=== PATIENT | female | born 1960 | race Caucasian/White ===

== ENCOUNTER → 2019-04-06 14:31 | Outpatient (BNVA) | payer OTHER, SELFPAY | PROVIDERS: Family Provider Family Medicine; PCP Family Medicine; Visit Provider Family Medicine | DX: E78.5 Hyperlipidemia, unspecified (principal); E11.9 Type 2 diabetes mellitus without complications | CPT/HCPCS: 36415; 80053; 80061; 83036 ==

== ENCOUNTER 2019-06-08 16:32 | Outpatient (CLI) | payer OTHER, SELFPAY ==
--- NOTE | 2019-06-08 16:51 | XR_ITS ---
WS: [id number] XR cervical spine 3V* [id number] REASON FOR EXAM: chronic neck pain radiating down right arm FINDINGS: Narrowing of the disc spaces seen at C6-C7 There is degenerate changes C4-5. There is posterior spurring seen C6-C7. The odontoid process was normal. The joints of Luschka were normal. XR/XR cervical spine 3V* [id number] IMPRESSION: Degenerate disc changes C6-C7 Mild cervical spondylosis C6-C7
== END 2019-06-08 16:33 | disposition home or self-care (01) ==
LOC: RAD 16:35
PROVIDERS: Family Provider Family Medicine; PCP Family Medicine; Visit Provider Family Medicine
DX: M47.892 Other spondylosis, cervical region (principal); M54.2 Cervicalgia; G89.29 Other chronic pain
CPT/HCPCS: 72040

== ENCOUNTER 2019-07-08 09:43 | Outpatient (CLI) | payer SELFPAY ==
--- NOTE | 2019-07-08 09:50 | MR_ITS ---
WS: [id number] MRI CERVICAL SPINE NONCONTRAST TECHNIQUE: Sagittal T1, T2 and STIR imaging. Axial T2, gradient, and fiesta imaging. CLINICAL INFORMATION: NECK / SHOULDER PAIN COMPARISON: None. FINDINGS: Straightening of the normal cervical lordosis. Cord signal is normal. Moderate central canal stenosis C4-C6 worse at C6-7. C2-C3: Mild left and no significant right foraminal narrowing. Spinal canal is patent. C3-C4: Osteophytic ridging. Mild left and no significant right foraminal narrowing. Mild facet arthro lynda. Spinal canal is patent. C4-C5: Disc osteophyte complex with endplate ridging. Moderate central canal stenosis with slight con tact of the cervical cord. Moderate right greater than left bony foraminal narrowing. C5-C6: Disc osteophyte complex with endplate ridging. Small left pericentral disc osteophyte protrusi on with contact of the cervical cord. Moderate central canal stenosis. Moderate to severe left and mo derate right bony foraminal narrowing. Mild facet arthropathy. C6-C7: Disc osteophyte complex with moderate central canal stenosis and indentation on the cervical c ord. Severe right and moderate to severe left bony foraminal narrowing. Moderate facet arthropathy. C7-T1: Osteophytic ridging. Mild to moderate left and mild right bony foraminal narrowing. Spinal can al is patent. Visualized brain stem structures: Normal. Prevertebral soft tissues: Normal. MR/MR cervical spin wo con* [id number] IMPRESSION: 1. Straightening of the normal cervical lordosis. 2. Moderate central canal stenosis C4-C6 worse at C6-7 with disc osteophyte co mplexes with slight indentation on the cervical cord. 3. Moderate to severe bony foraminal narrowing worse at right C4-C5, left C5-C 6, and right C6-C7 worse at right C6-7. 4. Mild to moderate left C7-T1 bony foraminal narrowing.
== END 2019-07-08 09:44 | disposition home or self-care (01) ==
LOC: RADWPI 09:49
PROVIDERS: Family Provider Family Medicine; PCP Family Medicine; Visit Provider Family Medicine
DX: M54.2 Cervicalgia (principal); M25.519 Pain in unspecified shoulder; M48.02 Spinal stenosis, cervical region
CPT/HCPCS: 72141

== ENCOUNTER → 2019-08-07 08:45 | Outpatient (BNVA) | payer SELFPAY | PROVIDERS: Family Provider Family Medicine; PCP Family Medicine; Visit Provider Family Medicine | DX: I10 Essential (primary) hypertension (principal); E78.00 Pure hypercholesterolemia, unspecified | CPT/HCPCS: 80053; 80061; 83036 ==

== ENCOUNTER 2019-10-06 06:42 | Outpatient (CLI) | payer SELFPAY ==
--- NOTE | 2019-10-06 07:03 | NMCV_ITS ---
NM tesha perf SPECT r/s* [id number] Kathie Angel Age: 59 Gender: F : 1960 Exam Date: 10/06/2019 07:29 Ordering Phys: Lydia Laurent DO Technologist: KIMBERLY Villa Exam Location: [facility] Indications: PALPITATIONS STRESS TEST Please see separate stress test report in [facility] for full findings IMAGE PROTOCOL Rest/Stress 1 Exercise Day Radiopharmaceutical Dose (mCi) Administration Site Administered by Rest: Tc-99m 10.8 IV KIMBERLY Cano Sestamikar Stress:Tc-99m 32.7 IV KIMBERLY Cano Sestamikar Rest: 06-Oct-2019 60 Discovery 630 Stress: 06-Oct-2019 15 Discovery 630 Radiopharmaceutical was injected at 85 % maximum heart rate. Images obtained in supine and prone position. SPECT RESULTS Technical Quality: Excellent Raw Data Analysis: Normal Image Corrections: No attenuation or motion correction applied Summed Stress Score: 0 Summed Rest Score: 6 Summed Difference Score: 0 PERFUSION FINDINGS SPECT images demonstrate homogeneous tracer distribution throughout the myocardium. FUNCTIONAL RESULTS (calculated via Gated SPECT) Stress Image LV EF (%): 92 Stress EDV (mL):51 TID: 0.59 Stress ESV (mL):4 Rest Image LV EF (%): 91 FUNCTIONAL FINDINGS: Left ventricle function is hyperdynamic at 91% IMPRESSIONS Myocardial perfusion imaging is normal low probability for obstructive coronary artery disease. EKG segment will be documented separately. Tamie Acuna MD (Electronically Signed) Final Date: 06 October 2019 15:43 S
[2019-10-06 07:04] VITALS: BMI 26.3
[2019-10-06 09:19] VITALS: BP 177/83; PULSE 96
--- NOTE | 2019-10-06 09:30 | ECG_ITS ---
[facility] Test Date: 2019-10-06 Pat Name: Kathie Angel Department: Room: Gender: Female Investigative Writer: : 1960 Requested By: Lydia Laurent Order Number: [id number] Rogers MD: Iris Mancia M.D. Interpretive Statements NAME OF STUDY: EXERCISE SESTAMIBI STRESS TEST INDICATION: Palpitations, r/o CAD Baseline blood pressure of 134/86 mm Hg, heart rate of 59 beats per minute and oxygen saturation 94%. EKG showed normal sinus rhythm, normal axis with normal ST-Ts. The patient exercised for 7 minutes 15 seconds on a standard Mike protocol. Patient attained a maximum heart rate of 145 beats per minute(88 % of the maximum predicted heart rate) with a blood pressure at the peak exercise of 167/71 mm Hg and oxygen saturation of 97%. The EKG at the peak exercise revealed sinus tachycardia with significant baseline artifact. No markedly abnormal ST-T wave changes noted. Patient did not have any chest pain or any significant arrhythmis with the exercise. This study was terminated due to shortness of breath and fatigue. During the recovery phase, there were no new changes. Blood pressure at the end of the recovery phase was 177/83 mm Hg with a heart rate of 103 beats per minute and oxygen saturation 97%. CONCLUSION: 1. Normal EKG response to treadmill exercise 2. No exercise-induced chest pain or cardiac arrhythmia 3. Excellent exercise tolerance, attained a maximum of 10.2 METs. Maximum VO2 of 35.7 mL/kg/min. 4. Baseline normal blood pressure with normal response to exercise. 5. Perfusion scan will be documented separately. Electronically Signed On 10-07-2019 17:36:36 CDT by rIis Mancia M.D. [id number]
== END 2019-10-06 06:43 | disposition home or self-care (01) ==
LOC: CDL 06:43
PROVIDERS: PCP Family Medicine; Visit Provider Family Medicine
DX: R00.2 Palpitations (principal)
CPT/HCPCS: 78452; 93017; A9500

== ENCOUNTER → 2019-12-24 11:27 | Outpatient (BNVA) | payer SELFPAY | PROVIDERS: PCP Family Medicine; Visit Provider Family Medicine | DX: E11.65 Type 2 diabetes mellitus with hyperglycemia (principal) | CPT/HCPCS: 80053; 83036 ==

== ENCOUNTER → 2020-01-15 11:13 | Outpatient (BNVA) | payer OTHER, SELFPAY | PROVIDERS: PCP Family Medicine; Visit Provider Nurse Practitioner Family | DX: Z11.59 Encounter for screening for other viral diseases (principal); Z20.828 Contact with and (suspected) exposure to other viral communicable diseases; J06.9 Acute upper respiratory infection, unspecified | CPT/HCPCS: 87635 ==

== ENCOUNTER → 2020-04-06 13:55 | Outpatient (BNVA) | payer OTHER, SELFPAY | PROVIDERS: PCP Family Medicine; Visit Provider Family Medicine | DX: E11.9 Type 2 diabetes mellitus without complications (principal); E78.00 Pure hypercholesterolemia, unspecified; I10 Essential (primary) hypertension; Z79.4 Long term (current) use of insulin | CPT/HCPCS: 80053; 80061; 82043; 83036; 85025 ==

== ENCOUNTER → 2020-08-29 15:21 | Outpatient (BNVA) | payer SELFPAY | PROVIDERS: PCP Family Medicine; Visit Provider Family Medicine | DX: E11.9 Type 2 diabetes mellitus without complications (principal); Z79.4 Long term (current) use of insulin; R53.83 Other fatigue | CPT/HCPCS: 80053; 83036; 84443; 85025 ==

== ENCOUNTER → 2021-04-10 16:00 | Outpatient (BNVA) | payer SELFPAY | PROVIDERS: PCP Family Medicine; Visit Provider Family Medicine | DX: E11.9 Type 2 diabetes mellitus without complications (principal); Z79.4 Long term (current) use of insulin | CPT/HCPCS: 80053; 80061; 82043; 83036 ==

== ENCOUNTER → 2021-05-15 16:08 | Outpatient (BNVA) | payer SELFPAY | PROVIDERS: PCP Family Medicine; Visit Provider Family Medicine | DX: E78.00 Pure hypercholesterolemia, unspecified (principal) | CPT/HCPCS: 80053 ==

== ENCOUNTER 2021-06-16 16:46 | Emergency (ER) | payer SELFPAY ==
[2021-06-16 16:53] VITALS: BP 150/96; PULSE 78; RESP 18; TEMP 37; O2SAT 96; BMI 26.1
[2021-06-16 17:05] VITALS: BP 158/100; PULSE 78; RESP 16; O2SAT 98
--- NOTE | 2021-06-16 17:25 | XRR_ITS ---
PROCEDURE INFORMATION: Exam: XR Right Humerus Exam date and time: 06/16/2021 5:40 PM Age: 60 years old Clinical indication: Pain; Upper arm; Right; Additional info: Injury, fall today, severe pain in R arm near shoulder with loss of mobility TECHNIQUE: Imaging protocol: XR Right humerus. Views: 2 or more views. COMPARISON: CR (CHEST, ) 06/16/2021 5:35 PM FINDINGS: Bones/joints: The distal humerus and elbow are unremarkable. There is a comminuted nondisplaced fracture of the humeral neck and greater tubercle. Glenohumeral alignment is satisfactory. Soft tissues: Visible soft tissues are unremarkable. XR/[place] [id number] IMPRESSION: Comminuted nondisplaced proximal humeral fracture. No dislocation.
--- NOTE | 2021-06-16 17:25 | XRR_ITS ---
PROCEDURE INFORMATION: Exam: XR Right Shoulder Exam date and time: 06/16/2021 5:35 PM Age: 60 years old Clinical indication: Pain; Upper arm; Right; Additional info: Injury, fall today, severe pain in right arm near shoulder with loss of mobility TECHNIQUE: Imaging protocol: XR Right shoulder. Views: 2 or more views. COMPARISON: CR (CHEST, ) 06/16/2021 5:32 PM FINDINGS: Bones/joints: Comminuted nondisplaced fracture of humeral neck and greater tubercle. Glenohumeral alignment is satisfactory. The scapula is intact. The clavicle is intact. Soft tissues: Normal. XR/XR shoulder RT min 2V* [id number] IMPRESSION: Comminuted nondisplaced proximal humeral fracture. No dislocation.
--- NOTE | 2021-06-16 17:27 | XRR_ITS ---
PROCEDURE INFORMATION: Exam: XR Chest Exam date and time: 06/16/2021 5:32 PM Age: 60 years old Clinical indication: Pain; Chest pressure; Additional info: Injury to R humerus, PT in severe pain TECHNIQUE: Imaging protocol: XR of the chest. Views: 1 view. COMPARISON: CR Chest 2 views* [id number] 05/27/2018 9:18 AM FINDINGS: Lungs: Lungs are clear. Pleural spaces: There is no pleural effusion or pneumothorax. Heart/Mediastinum: Cardiomediastinal contours are unremarkable. Bones/joints: Comminuted nondisplaced right proximal humeral fracture. No apparent dislocation. XR/XR chest 1V portable [id number] IMPRESSION: 1. Comminuted nondisplaced right proximal humeral fracture. 2. Lungs are clear.
--- NOTE | 2021-06-16 17:32 | ED_ITS ---
HPI - Fall General: Chief Complaint: Fall Stated Complaint: Fell, Rt arm injury Time Seen by Provider: 06/16/21 16:48 History of Present Illness: 60-year-old female presents to the emergency department chief complaint of right arm injury due to a slip and fall she reports that this happened just prior to arrival which she is unable to move her arm without excruciating pain in the upper arm lower shoulder she reports no pre-existing history of right shoulder injury she reports no difficulty breathing or shortness of breath she reports the pain is excruciating primary with movement. 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 Associated symptoms-after fall: Denies abdominal pain, chest pain or headache(s) Review of Systems General: Reports: 10 or more systems reviewed and unremarkable except in HPI a nd below Const: Denies: fever(s), chills, fatigue or malaise Eyes: Denies: change in vision or blurry vision Card: Denies: chest pain or palpitations Resp: Denies: dyspnea or productive cough GI: Denies: abdominal pain, nausea or vomiting : Denies: flank pain Musc: Reports: extremity pain and extremity swelling Skin/Breast: Denies: rash or pruritus Neuro: Denies: headache(s), numbness in extremities or weakness in extremities Psych: Denies: anxiety or depression Robert/Lymph: Denies: easy bleeding All/Imm: Denies: urticaria, throat swelling or facial swelling PFSH ED PFSH: Medical History Depression Elevated LDL cholesterol level Essential (primary) hypertension Fibromyalgia History of 2019 novel coronavirus disease (COVID-19) Neuropathy Type 2 diabetes mellitus, with long-term current use of insulin Surgical History H/O: hysterectomy History of back surgery Family History Other Cancer Social History Smoking and tobacco status: former smoker Alcohol intake: never Adopted: Yes Lives independently: Yes Physical Exam Const: COMMON NORMALS: patient oriented x3 and healthy appearing; apparent distress (Appears to be in moderate distress due to pain.) HENMT: COMMON NORMALS: normocephalic and atraumatic HEAD & SCALP: normocephalic and atraumatic Eye: COMMON NORMALS: Equal, round and reactive pupils present and EOMs intact bilaterally PUPIL: Yes Equal, round and reactive pupils present Neck/C-Spine: COMMON NORMALS: full ROM, supple and no JVD Lymph: LYMPHATIC: no lymphadenopathy noted Chest: COMMONS NORMALS: normal inspection of the chest and normal palpation of entire chest wall Resp: COMMON NORMALS: normal respiratory effort, No retractions and clear to auscultation bilaterally EFFORT & INSPECTION: Yes able to speak in complete sentences and Yes symmetric chest movement AUSCULTATION: clear to auscultation bilaterally Cardio: COMMON NORMALS: no JVD, regular rate and regular rhythm RATE: regular rate RHYTHM: regular rhythm GI: COMMON NORMALS: Normal to inspection, nondistended, normoactive bowel sounds present, Soft to palpation and non-tender INSPECTION: Yes normal to inspection PALPATION: Yes Soft to palpation : COMMON NORMALS: Yes no CVA tenderness BLADDER/KIDNEY EXAM: Yes no CVA tenderness Back/Pelvis: COMMON NORMALS: no CVA tenderness Extremity: RIGHT UPPER EXTREMITY: Yes shoulder joint and Yes upper arm (Significant pain to palpation over the upper humerus lower shoulder obvious) OTHER: Neurovascularly intact distally concerns for deformity noted to the midshaft humerus no obvious crepitance or step-offs appreciated Neuro: COMMON NORMALS: patient oriented x3, CN's II-XII intact bilaterally, moves all extremities and no focal motor deficits Psych: COMMON NORMALS: mental status grossly normal, Normal thought process present, cooperative and normal affect THOUGHT PROCESS: Normal thought process present Skin: COMMON NORMALS: no rashes or lesions noted GENERAL SKIN EXAM: no rashes or lesions noted Course Vital Signs: Vital signs: Vital Signs Temperature 98.6 F 06/16/21 16:53 Pulse Rate 98 06/16/21 17:33 Respiratory Rate 16 06/16/21 17:05 Blood Pressure 158/92 06/16/21 17:33 Pulse Oximetry 100 06/16/21 17:33 MDM - Fall Medical Decision Making Due to the patient sitting condition I will establish family provider for pain control. X-ray imaging of the right shoulder right humerus will be obtained we will continue to follow. Discussed the patient's case with Dr. Calderón implementation project coordinator orthopedist there is in agreement put the patient in a shoulder immobilizer further follow-up in the office in his upcoming Saturday to start the patient hydrocodone for breakthrough pain control. Discharge Plan Discharge Patient Disposition: Home Clinical Impression: Fracture of head of humerus, Fall from standing Condition: Stable Prescriptions: New hydrocodone-acetaminophen 7.5-325 mg tablet 1 tab PO Q8H PRN (Reason: pain) Qty: 20 0RF No Action aspirin 81 mg tablet,delayed release (DR/EC) 162 mg PO ONCE 0RF glipizide 5 mg tablet extended release 24hr 5 mg PO DAILY Qty: 90 0RF hydrochlorothiazide 25 mg tablet 25 mg PO QAM Qty: 90 1RF lisinopril 5 mg tablet 5 mg PO ONCE Qty: 90 1RF venlafaxine [Effexor XR] 75 mg capsule,extended release 24hr 75 mg PO QAM Qty: 90 1RF metformin 500 mg tablet 1,000 mg PO BID Qty: 120 5RF Lantus Solostar U-100 Insulin 100 unit/mL (3 mL) insulin pen See Rx Instructions .ROUTE .COMPLEX Qty: 15 0RF Dose Instruction: INJECT 50 UNITS SUBCUTANEOUSLY EVERY DAY Rx Instructions: INJECT 50 UNITS SUBCUTANEOUSLY EVERY DAY Victoza 3-Palmer 0.6 mg/0.1 mL (18 mg/3 mL) pen injector See Rx Instructions .ROUTE .COMPLEX Qty: 9 0RF Dose Instruction: INJECT 1.8MG SUBCUTANEOUSLY EVERY 24 HOURS Rx Instructions: INJECT 1.8MG SUBCUTANEOUSLY EVERY 24 HOURS atorvastatin 40 mg tablet See Rx Instructions .ROUTE .COMPLEX 90 Days Qty: 90 0RF Dose Instruction: Take 1 tablet by mouth once daily Rx Instructions: Take 1 tablet by mouth once daily Discharge Orders: Discharge ED (Routine); Ordered 06/16/21 Ordered By: Aldair Sandoval Referrals: Geoffrey Calderón DO [Physician] - 4-7 days (Follow-up with Dr. Calderón on this upcoming Saturday please contact the office noted above on Saturday to further cement this appointment) Lydia Laurent DO [Primary Care Provider] - Discharge Activity: Limit activity as instructed Patient Instructions: Fractures - Humerus, Arm Fracture in Adults (ED), Opioid Safety Activity Restrictions/Additional Instructions: Please follow-up with the provided orthopedic doctor as noted above please use the shoulder immobilizer all the time until seen by him, take medications as prescribed. Please return the interim if any of your symptoms persist or worse. Coding Level of Care Code ED Public Health Policy Analyst for [employer] Fwd Exam Comprehensive
[2021-06-16 17:33] VITALS: BP 158/92; PULSE 98; O2SAT 100
[2021-06-16 18:15] VITALS: RESP 18
[2021-06-16] MEDS: ondansetron 2 mg/ML SDV 2 mL 4 MG IVP (18:15)
[2021-06-16] MEDS: sodium chloride 0.9% 1,000 ML 100 ML IV (18:15)
[2021-06-16] MEDS: fentaNYL 50 mcg/mL INJ 2mL IVP (18:15)
[2021-06-16 19:11] VITALS: BP 134/84; PULSE 92; RESP 16; O2SAT 94
--- NOTE | 2021-06-16 19:17 | PC.NURSE ---
Patient in bed, report given to Melvin KUMARI.
== END 2021-06-16 19:30 | disposition home or self-care (01) ==
PROVIDERS: Emergency Provider Emergency Medicine; PCP Family Medicine
DX: S42.294A Other nondisplaced fracture of upper end of right humerus, initial encounter for closed fracture (principal); Z79.84 Long term (current) use of oral hypoglycemic drugs; Z79.82 Long term (current) use of aspirin; Z79.4 Long term (current) use of insulin; I10 Essential (primary) hypertension; E11.40 Type 2 diabetes mellitus with diabetic neuropathy, unspecified; Z87.891 Personal history of nicotine dependence; W01.0XXA Fall on same level from slipping, tripping and stumbling without subsequent striking against object, initial encounter
CPT/HCPCS: 71045; 73030; 73060; 96361; 96374; 96375; 99284; J2405; J3010; J7030

== ENCOUNTER → 2021-07-10 16:04 | Outpatient (BNVA) | payer SELFPAY | PROVIDERS: PCP Family Medicine; Visit Provider Family Medicine | DX: E11.9 Type 2 diabetes mellitus without complications (principal); Z79.4 Long term (current) use of insulin; E78.00 Pure hypercholesterolemia, unspecified; E11.65 Type 2 diabetes mellitus with hyperglycemia | CPT/HCPCS: 80053; 83036 ==

== ENCOUNTER → 2021-07-13 13:18 | Outpatient (BNVA) | payer SELFPAY | PROVIDERS: PCP Family Medicine; Visit Provider Orthopaedic Surgery | DX: S42.291A Other displaced fracture of upper end of right humerus, initial encounter for closed fracture (principal); S42.301A Unspecified fracture of shaft of humerus, right arm, initial encounter for closed fracture | CPT/HCPCS: 73030 ==

== ENCOUNTER → 2022-01-11 09:37 | Outpatient (BNVA) | payer SELFPAY | PROVIDERS: PCP Family Medicine; Visit Provider Family Medicine | DX: E78.5 Hyperlipidemia, unspecified (principal); E11.9 Type 2 diabetes mellitus without complications; Z79.4 Long term (current) use of insulin | CPT/HCPCS: 80053; 80061; 82043; 83036; 85025 ==

== ENCOUNTER 2022-02-20 08:08 | Inpatient (IN) | payer SELFPAY ==
[2022-02-20] VITALS (10 sets, daily range): BP systolic 111–130; BP diastolic 61–83; PULSE 70–97; RESP 14–19; TEMP 36.4–36.9; O2SAT 94–99; BMI 25.8; BMI 25.2
--- NOTE | 2022-02-20 08:22 | XRR_ITS ---
PROCEDURE INFORMATION: Exam: XR Chest Exam date and time: 02/20/2022 9:42 AM Age: 61 years old Clinical indication: Pain; Angina pectoris; Additional info: Cp TECHNIQUE: Imaging protocol: Radiologic exam of the chest. Views: 1 view. COMPARISON: CR (CHEST, ) 06/16/2021 5:32 PM FINDINGS: Lungs: Unremarkable. No consolidation. Pleural spaces: Unremarkable. No pleural effusion. No pneumothorax. Heart/Mediastinum: Unremarkable. No cardiomegaly. Bones/joints: Unremarkable. XR/XR chest 1V portable [id number] IMPRESSION: No acute findings.
--- NOTE | 2022-02-20 08:23 | ECG_ITS ---
[facility] Test Date: 2022-02-20 Pat Name: Kathie Angel Department: Room: Gender: Female Informaticist: : 1960 Requested By: Meg Gutierrez Order Number: [id number] Rogers MD: Iris Mancia M.D. Measurements Intervals [place] Rate: 78 P: 50 WI: 173 QRS: -16 QRSD: 96 T: 44 QT: 378 QTc: 433 Interpretive Statements SINUS RHYTHM POSSIBLE LEFT ATRIAL ENLARGEMENT [-0.1mV P-WAVE IN V1/V2] LOW QRS VOLTAGE IN PRECORDIAL LEADS [QRS DEFLECTION < 1.0 mV IN CHEST LEADS] POSSIBLE ANTERIOR MYOCARDIAL INFARCTION , PROBABLY OLD [30 ms Q WAVE IN V3/V4, OR R < 0.2 mV IN V4] Compared to ECG 09/16/2017 13:33:14 Low QRS voltage now present Myocardial infarct finding now present Electronically Signed On 02-20-2022 18:08:23 LOGISTICS AND PLANNING MANAGER by Iris Mancia M.D. [id number]
--- NOTE | 2022-02-20 09:01 | W.ED.WEAKNES ---
Documented by User: LILLI See 02/20/22 12:03 HPI - Weakness General: Chief complaint: Weakness Stated complaint: chest pain Time Seen by Provider: 02/20/22 08:35 History of Present Illness: Patient is a 61-year-old female who comes to the ED with palpitations. Patient has a past medical history of type 2 diabetes, hypertension and dyslipidemia. Patient was former smoker and quit smoking a year ago. She has a 15 pack-year history of tobacco smoke. Symptoms started while she was up getting ready for work. She started feeling off and weak' so she sat down. When she sat down she started feeling palpitations in her chest and also developed achiness in her shoulders bilaterally, left shoulder blade and in her neck. The palpitations lasted for approximately 20 minutes. The heart palpitations have resolved upon arrival here in the ED but she still is having some achiness in her shoulders and neck. She took 162 mg of aspirin this morning. Denies any similar past episodes. Associated symptoms: Reports chest pain; Denies chills, dysuria, fever(s), headache(s), nausea or vomiting Review of Systems Const: Denies: fever(s), chills or fatigue Eyes: Denies: change in vision or eye discomfort ENMT: Denies: throat pain, odynophagia, nasal discharge or nasal congestion Card: Reports: chest pain and palpitations; Denies: edema, swelling of feet/ankles, dyspnea on exertion or orthopnea Resp: Denies: dyspnea, productive cough or non-productive cough GI: Denies: abdominal pain, nausea, vomiting, diarrhea, constipation or hematochezia : Denies: flank pain, dysuria or hematuria Musc: Denies: neck pain, back pain or extremity swelling Skin/Breast: Denies: rash or new lesions Neuro: Denies: headache(s), numbness in extremities or weakness in extremities PFS ED PFSH: Medical History Depression Elevated LDL cholesterol level Essential (primary) hypertension Fibromyalgia History of 2019 novel coronavirus disease (COVID-19) Neuropathy Type 2 diabetes mellitus, with long-term current use of insulin Surgical History H/O: hysterectomy History of back surgery Family History Other Cancer Social History Smoking and tobacco status: former smoker Alcohol intake: never Adopted: Yes Lives independently: Yes Physical Exam Const: COMMON NORMALS: no acute distress, patient oriented x3 and alert GENERAL APPEARANCE: cooperative HENMT: COMMON NORMALS: normocephalic HEAD & SCALP: normocephalic MOUTH: Normal oral and palatal mucosa present THROAT: posterior oropharynx normal and uvula midline Neck/C-Spine: COMMON NORMALS: supple GENERAL: Yes normal visual inspection Resp: COMMON NORMALS: normal respiratory effort, No retractions, No use of accessory muscles and clear to auscultation bilaterally AUSCULTATION: clear to auscultation bilaterally Cardio: COMMON NORMALS: regular rate, regular rhythm, S1 normal heart sound present, S2 normal heart sound present, No gallops present (Cardio), No clicks present (Cardio), No murmurs present (Cardio) and Peripheral pulses 2+ throughout RATE: regular rate RHYTHM: regular rhythm HEART SOUNDS: S1 normal heart sound present and S2 normal heart sound present PERIPHERAL PULSES: Peripheral pulses 2+ throughout GI: COMMON NORMALS: Normal to inspection, nondistended, normoactive bowel sounds present, Soft to palpation, non-tender and no masses PALPATION: Yes Soft to palpation : COMMON NORMALS: Yes no CVA tenderness BLADDER/KIDNEY EXAM: Yes no CVA tenderness Back/Pelvis: COMMON NORMALS: no CVA tenderness Extremity: COMMON NORMALS: normal to inspection Neuro: COMMON NORMALS: patient oriented x3 SENSORIUM/ORIENTATION: Yes alert GAIT: Yes Normal gait present Skin: GENERAL SKIN EXAM: dry skin Course Reevaluation(s): Reevaluation #1: Patient says her achiness in shoulders bilaterally and neck have improved. Right now she is just feeling tired, fatigued and weak. Denies any new chest pain or any new symptoms since here in the ED. Time: 10:00 Vital Signs: Vital signs: Vital Signs Temperature 97.6 F 02/20/22 08:14 Pulse Rate 71 02/20/22 11:16 Respiratory Rate 16 02/20/22 11:16 Blood Pressure 125/72 02/20/22 11:16 Pulse Oximetry 96 02/20/22 11:16 Oxygen Delivery Me thod 02/20/22 11:16 MDM - Weakness Medical Decision Making Patient is a 61-year-old female comes to the ED with chest pain like symptoms and palpitations. Past medical history of diabetes, hyperlipidemia and hypertension. She was getting ready for work and she felt off and then sat down and started feeling palpitations in her chest and achiness in her shoulders and neck. She has never had any symptoms like this before. Her symptoms have mostly resolved here in the ED. Vitals are stable. Exam of patient is benign. First troponin was 48 and then her 2-hour troponin was 92.75 giving her a delta of 44.75. Her EKGs did not show anything acute. I spoke with Dr. Esposito about patient case and he will be taking over patient care and getting her admitted. Lab Data I reviewed the patient's lab results. 02/20/22 09:13 02/20/22 09:13 Radiology Impressions Chest X-Ray 02/20/22 08:22 IMPRESSION: No acute findings. Laboratory Results WBC 7.3 10^3/uL (4.0-10.0) 02/20/22 09:13 RBC 4.16 10^6/uL (4.1-5.3) 02/20/22 09:13 Hgb 13.0 g/dL (11.5-15.3) 02/20/22 09:13 Hct 39.6 % (37.0-47.0) 02/20/22 09:13 MCV 95.2 fl (81-99) 02/20/22 09:13 MCH 31.3 pg (28.0-34.0) 02/20/22 09:13 MCHC 32.8 g/dL (30.0-36.0) 02/20/22 09:13 RDW 12.4 % (12.1-15.1) 02/20/22 09:13 Plt Count 242 10^3/cmm (130-400) 02/20/22 09:13 MPV 11.4 fL (7.4-10.4) H 02/20/22 09:13 Neut % (Auto) 72.2 % 02/20/22 09:13 Lymph % (Auto) 15.9 % 02/20/22 09:13 [place] % (Auto) 10.0 % 02/20/22 09:13 Eos % (Auto) 0.8 % 02/20/22 09:13 Baso % (Auto) 0.8 % 02/20/22 09:13 Neut # (Auto) 5.25 10^3/uL (1.8-7.7) 02/20/22 09:13 Lymph # (Auto) 1.2 10^3/uL (0.8-4.8) 02/20/22 09:13 [place] # (Auto) 0.7 10^3/uL (0.2-0.9) 02/20/22 09:13 Eos # (Auto) 0.1 10^3/uL (0.0-0.8) 02/20/22 09:13 Baso # (Auto) 0.1 10^3/uL (0.0-0.1) 02/20/22 09:13 Nucleated RBC % (auto) 0 % 02/20/22 09:13 Nucleated RBCs # 0.0 /100WBC 02/20/22 09:13 Sodium 138 mmol/L (136-145) 02/20/22 09:13 Potassium 3.7 mmol/L (3.5-5.1) 02/20/22 09:13 Chloride 99 mmol/L (98-107) 02/20/22 09:13 Carbon Dioxide 26 mmol/L (22-29) 02/20/22 09:13 Anion Gap 16.7 (5-19) 02/20/22 09:13 BUN 16 mg/dL (6-20) 02/20/22 09:13 Creatinine 0.6 mg/dL (0.5-0.9) 02/20/22 09:13 GFR Calculation 102.3 mL/min (90-130) 02/20/22 09:13 Glucose 162 mg/dL (65-115) H 02/20/22 09:13 Calculated Osmolality 291 mOsm/kg (285-295) 02/20/22 09:13 Calcium 9.6 mg/dL (8.5-10.5) 02/20/22 09:13 Total Bilirubin 0.5 mg/dL (0.15-1.2) 02/20/22 09:13 AST 33 U/L (0-32) H 02/20/22 09:13 ALT 37 U/L (0-33) H 02/20/22 09:13 Alkaline Phosphatase 65 U/L (35-105) 02/20/22 09:13 Troponin T Baseline 48 ng/L (0-10) H 02/20/22 09:13 Troponin T 120 Minute 92.75 ng/L (0-10) H 02/20/22 11:00 Delta Troponin T 44.75 ABS# (0-10) H* 02/20/22 11:00 Total Protein 6.6 g/dL (6.6-8.7) 02/20/22 09:13 Albumin 4.2 g/dL (3.5-5.2) 02/20/22 09:13 Globulin 2.4 g/dL (1.3-4.6) 02/20/22 09:13 EKG Data EKG 1: EKG interpretation date: 02/20/22 Interpretation: Sinus rhythm, 78 bpm, no ST segment elevation or depression seen. Discharge Plan Discharge Patient Disposition: Placed in Observation Clinical Impression: Non-ST elevation OK (NSTEMI) Condition: Stable Prescriptions: No Action metformin 500 mg tablet 1,000 mg PO BID Qty: 360 1RF hydrochlorothiazide 25 mg tablet 25 mg PO QAM Qty: 90 1RF venlafaxine [Effexor XR] 75 mg capsule,extended release 24hr 75 mg PO QAM Qty: 90 1RF aspirin 81 mg tablet,delayed release (DR/EC) 162 mg PO QAM multivitamin Tablet 1 tab PO QAM biotin 10,000 mcg Capsule 10,000 mcg PO QAM CoQ-10 100 mg Capsule 100 mg PO DAILY atorvastatin 40 mg tablet 40 mg PO QAM glipizide 5 mg tablet extended release 24hr 5 mg PO QAM terbinafine HCl 250 mg tablet 250 mg PO QAM lisinopril 5 mg tablet 5 mg PO QAM Lantus Solostar U-100 Insulin 100 unit/mL (3 mL) insulin pen 32 unit SUBCUT QAM Victoza 3-Palmer 0.6 mg/0.1 mL (18 mg/3 mL) pen injector 1.8 mg SUBCUT BEDTIME Referrals: Lydia Laurent DO [Primary Care Provider] - Coding Level of Care Code ED Pathology Laboratory Director for Chg Fwd Exam Comprehensive Documented by User: Juan Esposito MD 02/20/22 12:40 HPI - Weakness General: Chief complaint: Weakness Stated complaint: chest pain Time Seen by Provider: 02/20/22 08:35 PFSH ED PFSH: Medical History Depression Elevated LDL cholesterol level Essential (primary) hypertension Fibromyalgia History of 2019 novel coronavirus disease (COVID-19) Neuropathy Type 2 diabetes mellitus, with long-term current use of insulin Surgical History H/O: hysterectomy History of back surgery Family History Other Cancer Social History Smoking and tobacco status: former smoker Alcohol intake: never Adopted: Yes Lives independently: Yes Course Vital Signs: Vital signs: Vital Signs Temperature 97.6 F 02/20/22 08:14 Pulse Rate 71 02/20/22 11:16 Respiratory Rate 16 02/20/22 11:16 Blood Pressure 125/72 02/20/22 11:16 Pulse Oximetry 96 02/20/22 11:16 Oxygen Delivery Me thod 02/20/22 11:16 MDM - Weakness Medical Decision Making Patient is a 61-year-old female comes to the ED with chest pain like symptoms and palpitations. Past medical history of diabetes, hyperlipidemia and hypertension. She was getting ready for work and she felt off and then sat down and started feeling palpitations in her chest and achiness in her shoulders and neck. She has never had any symptoms like this before. Her symptoms have mostly resolved here in the ED. Vitals are stable. Exam of patient is benign. First troponin was 48 and then her 2-hour troponin was 92.75 giving her a delta of 44.75. Her EKGs did not show anything acute. I spoke with Dr. Esposito about patient case and he will be taking over patient care and getting her admitted. Received signout on the patient. She presents to the hospital after a 20-minute episode of chest pressure that radiated to her neck and her jaw this morning. Has a history of diabetes, high cholesterol, hypertension. Labs done while in the emergency department show an elevation in her troponin. At 2 hours the troponin continues to elevate. The patient is asymptomatic at this time. We will start heparin bolus and drip. I discussed the case with the hospitalist, and we will admit for further work-up and treatment of her NSTEMI Lab Data 02/20/22 09:13 02/20/22 09:13 Radiology Impressions Chest X-Ray 02/20/22 08:22 IMPRESSION: No acute findings. Laboratory Results WBC 7.3 10^3/uL (4.0-10.0) 02/20/22 09:13 RBC 4.16 10^6/uL (4.1-5.3) 02/20/22 09:13 Hgb 13.0 g/dL (11.5-15.3) 02/20/22 09:13 Hct 39.6 % (37.0-47.0) 02/20/22 09:13 MCV 95.2 fl (81-99) 02/20/22 09:13 MCH 31.3 pg (28.0-34.0) 02/20/22 09:13 MCHC 32.8 g/dL (30.0-36.0) 02/20/22 09:13 RDW 12.4 % (12.1-15.1) 02/20/22 09:13 Plt Count 242 10^3/cmm (130-400) 02/20/22 09:13 MPV 11.4 fL (7.4-10.4) H 02/20/22 09:13 Neut % (Auto) 72.2 % 02/20/22 09:13 Lymph % (Auto) 15.9 % 02/20/22 09:13 [place] % (Auto) 10.0 % 02/20/22 09:13 Eos % (Auto) 0.8 % 02/20/22 09:13 Baso % (Auto) 0.8 % 02/20/22 09:13 Neut # (Auto) 5.25 10^3/uL (1.8-7.7) 02/20/22 09:13 Lymph # (Auto) 1.2 10^3/uL (0.8-4.8) 02/20/22 09:13 [place] # (Auto) 0.7 10^3/uL (0.2-0.9) 02/20/22 09:13 Eos # (Auto) 0.1 10^3/uL (0.0-0.8) 02/20/22 09:13 Baso # (Auto) 0.1 10^3/uL (0.0-0.1) 02/20/22 09:13 Nucleated RBC % (auto) 0 % 02/20/22 09:13 Nucleated RBCs # 0.0 /100WBC 02/20/22 09:13 Sodium 138 mmol/L (136-145) 02/20/22 09:13 Potassium 3.7 mmol/L (3.5-5.1) 02/20/22 09:13 Chloride 99 mmol/L (98-107) 02/20/22 09:13 Carbon Dioxide 26 mmol/L (22-29) 02/20/22 09:13 Anion Gap 16.7 (5-19) 02/20/22 09:13 BUN 16 mg/dL (6-20) 02/20/22 09:13 Creatinine 0.6 mg/dL (0.5-0.9) 02/20/22 09:13 GFR Calculation 102.3 mL/min (90-130) 02/20/22 09:13 Glucose 162 mg/dL (65-115) H 02/20/22 09:13 Calculated Osmolality 291 mOsm/kg (285-295) 02/20/22 09:13 Calcium 9.6 mg/dL (8.5-10.5) 02/20/22 09:13 Total Bilirubin 0.5 mg/dL (0.15-1.2) 02/20/22 09:13 AST 33 U/L (0-32) H 02/20/22 09:13 ALT 37 U/L (0-33) H 02/20/22 09:13 Alkaline Phosphatase 65 U/L (35-105) 02/20/22 09:13 Troponin T Baseline 48 ng/L (0-10) H 02/20/22 09:13 Troponin T 120 Minute 92.75 ng/L (0-10) H 02/20/22 11:00 Delta Troponin T 44.75 ABS# (0-10) H* 02/20/22 11:00 Total Protein 6.6 g/dL (6.6-8.7) 02/20/22 09:13 Albumin 4.2 g/dL (3.5-5.2) 02/20/22 09:13 Globulin 2.4 g/dL (1.3-4.6) 02/20/22 09:13 EKG Data EKG 1: Interpretation: EKG done at 11:50 AM and interpreted at 11:51 AM shows sinus rhythm, ventricular rate of 68 bpm, no ST segment elevation, left axis deviation, T wave inversion in lead aVR and lead III Discharge Plan Discharge Patient Disposition: Placed in Observation Clinical Impression: Non-ST elevation OK (NSTEMI) Condition: Stable Prescriptions: No Action metformin 500 mg tablet 1,000 mg PO BID Qty: 360 1RF hydrochlorothiazide 25 mg tablet 25 mg PO QAM Qty: 90 1RF venlafaxine [Effexor XR] 75 mg capsule,extended release 24hr 75 mg PO QAM Qty: 90 1RF aspirin 81 mg tablet,delayed release (DR/EC) 162 mg PO QAM multivitamin Tablet 1 tab PO QAM biotin 10,000 mcg Capsule 10,000 mcg PO QAM CoQ-10 100 mg Capsule 100 mg PO DAILY atorvastatin 40 mg tablet 40 mg PO QAM glipizide 5 mg tablet extended release 24hr 5 mg PO QAM terbinafine HCl 250 mg tablet 250 mg PO QAM lisinopril 5 mg tablet 5 mg PO QAM Lantus Solostar U-100 Insulin 100 unit/mL (3 mL) insulin pen 32 unit SUBCUT QAM Victoza 3-Pal[place] 0.6 mg/0.1 mL (18 mg/3 mL) pen injector 1.8 mg SUBCUT BEDTIME Referrals: Lydia Laurent DO [Primary Care Provider] - Coding Level of Care Code ED Pathology Laboratory Director for Chg Fwd Exam Comprehensive
[2022-02-20] MEDS: aspirin 81 mg Chew Tablet 162 MG PO (09:22)
[2022-02-20 09:26] LABS: Basophils # 0.1 10^3/uL (0.0-0.1); Basophils % 0.8 %; Eosinophils # 0.1 10^3/uL (0.0-0.8); Eosinophils % 0.8 %; Hematocrit 39.6 % (37.0-47.0); Lymphocytes # 1.2 10^3/uL (0.8-4.8); Lymphocytes % 15.9 %; Mean Corpuscular HGB Conc 32.8 g/dL (30.0-36.0); Mean Corpuscular Hemoglobin 31.3 pg (28.0-34.0); Mean Corpuscular Volume 95.2 fl (81-99); Mean Platelet Volume 11.4 fL (7.4-10.4); Monocytes # 0.7 10^3/uL (0.2-0.9); Neutrophils # 5.25 10^3/uL (1.8-7.7); Neutrophils % 72.2 %; Nucleated Red Blood Cells % 0 %; Platelet Count 242 10^3/cmm (130-400); Red Blood Count 4.16 10^6/uL (4.1-5.3); Red Cell Distribution Width 12.4 % (12.1-15.1); White Blood Count 7.3 10^3/uL (4.0-10.0)
[2022-02-20 09:45] LABS: Troponin(5th) Baseline 48 ng/L (0-10)
[2022-02-20 09:46] LABS: Alanine Aminotransferase 37 U/L (0-33); Albumin Level 4.2 g/dL (3.5-5.2); Alkaline Phosphatase 65 U/L (35-105); Anion Gap 16.7 (5-19); Aspartate Amino Transferase 33 U/L (0-32); Blood Urea Nitrogen 16 mg/dL (6-20); Calcium 9.6 mg/dL (8.5-10.5); Carbon Dioxide 26 mmol/L (22-29); Chloride 99 mmol/L (98-107); Globulin 2.4 g/dL (1.3-4.6); Glomerular Filtration Rate 102.3 mL/min (90-130); Glucose 162 mg/dL (65-115); Osmolality Calculated 291 mOsm/kg (285-295); Potassium 3.7 mmol/L (3.5-5.1); Sodium 138 mmol/L (136-145); Total Bilirubin 0.5 mg/dL (0.15-1.2); Total Protein 6.6 g/dL (6.6-8.7)
--- NOTE | 2022-02-20 10:23 | ECG_ITS ---
[facility] Test Date: 2022-02-20 Pat Name: Kathie Angel Department: Room: Gender: Female Survey Superintendent: : 1960 Requested By: Doug Pires Order Number: [id number] Rogers MD: Iris Mancia M.D. Measurements Intervals [place] Rate: 68 P: 24 MO: 177 QRS: -30 QRSD: 101 T: 15 QT: 388 QTc: 414 Interpretive Statements SINUS RHYTHM BORDERLINE LEFT AXIS DEVIATION [QRS AXIS < -20] Compared to ECG 02/20/2022 08:30:28 Myocardial infarct finding no longer present Electronically Signed On 02-20-2022 18:09:45 ROLL OVER PRESS OPERATOR by Iris Mancia M.D. [id number]
[2022-02-20 11:44] LABS: Troponin 5 2HR 92.75 ng/L (0-10)
[2022-02-20 11:45] LABS: Troponin 5 2HR Delta 44.75 ABS# (0-10)
[2022-02-20] MEDS: heparin 5,000 unit/mL INJ 1 mL 4000 UNIT IVP (12:06)
--- NOTE | 2022-02-20 12:37 | PC.PHAR ---
pt states she takes care of her own medications-pt states she uses lantus solostar 32 units qam ext med history shows last filled 01/30/22 50 units daily-pt states was taking coq10 daily states not taken in 2 weeks-notes are made in the pharmacy comments
[2022-02-20] MEDS: heparin drip 25,000 UNIT/500 ML PREMIX 20 UNIT IV (12:46)
--- NOTE | 2022-02-20 13:08 | P.HP_ITS ---
Providers/Chief Complaint Admitting Physician: Carley Liu MD Primary Care Provider: Lydia Laurent DO Chief Complaint: chest pain History of Present Illness Kathie Angel is a 61 year old female who presented to the emergency room with chief complaint of chest pain. She woke up this morning and was going about her usual activities. She had been doing her hair and brushing her teeth when she suddenly felt off . She sat down and almost immediately she felt her heart p ounding in her chest. She describes getting the shakes real bad . She thought that her blood sugar might be low as she is a known diabetic. She had her get her some ice cream which she ate. She did not check her blood sugar. She developed a bilateral ache in both shoulders that she described as a deep achy pressure that went down both upper arms and throughout her upper back. She has a history of fibromyalgia but the discomfort in her shoulders and upper back today was very different from anything she is ever experienced before. Her suggested checking her blood pressure because of her symptoms. They used a home device and blood pressure was noted to be 145/126. Heart rate registered 113. Despite resting her symptoms persisted and did not seem to be improving prompting the visit to the ER. They drove him by private vehicle. While in route the sensation of palpitations went away but she continued to have shoulder and upper arm and upper back discomfort. Vital signs on arrival here were normal. In all her symptoms lasted around 30 minutes. She denies having had similar symptoms in the past. When specifically asked however she admits that lately she has been so tired that she has not seem to be able to get enough rest no matter what she does. She has also had some episodes of feeling short of breath when she thinks back on it. She denies any nausea or vomiting. Has not had any diaphoresis. No syncope. No lower extremity edema or orthopnea. She does have a history of hypertension, hyperlipidemia and diabetes mellitus. She is adopted but believes an uncle on her mother side of the family had heart disease. EKG was sinus rhythm and nonspecific changes. Initial troponin was 48. 2-hour troponin was 92, with a delta of 44.75. She is currently chest pain-free. She has received aspirin and a heparin drip has been initiated. Hospitalist were consulted for admission for further evaluation. Review of Systems Const: Reports: fatigue (cannot seem to get enough rest) and malaise; Denies: diaphoresis ENMT: Reports: nasal congestion; Denies: throat pain Card: Reports: chest pain, palpitations and dyspnea on exertion; Denies: edema, syncope or orthopnea Resp: Reports: dyspnea; Denies: productive cough, non-productive cough or pain on inspiration GI: Reports: constipation; Denies: abdominal pain, nausea, vomiting or hematochezia : Denies: difficulty voiding Musc: Reports: other (muscle aches from fibromyalgia, today's pains in shoulders very different) Skin/Breast: Denies: rash or sores Neuro: Denies: numbness in extremities, weakness in extremities or sensory changes Psych: Denies: anxiety, depression (controlled with meds) or panic attacks Endo: Reports: tired all the time Robert/Lymph: Denies: easy bleeding Medications/Allergies Home Medications Medication Instructions Recorded Confirmed Last Taken Type aspirin 81 mg tablet,delayed 162 mg PO QAM 08/07/19 02/20/22 02/20/22 History release hydrochlorothiazide 25 mg tablet 25 mg PO QAM #90 tabs 10/09/21 02/20/22 02/20/22 Rx metformin 500 mg tablet 1,000 mg PO BID #360 tabs 10/09/21 02/20/22 02/20/22 Rx venlafaxine 75 mg capsule,extended 75 mg PO QAM #90 caps 10/09/21 02/20/22 02/20/22 Rx release 24 hr (Effexor XR) atorvastatin 40 mg tablet 40 mg PO QAM 02/20/22 02/20/22 02/20/22 07:00 History biotin 10,000 mcg capsule 10,000 mcg PO QAM 02/20/22 02/20/22 02/20/22 History coenzyme Q10 100 mg capsule 100 mg PO DAILY 02/20/22 02/20/22 2 Weeks Ago Histo ry (CoQ-10) ~02/06/22 not taken for 2 week glipizide 5 mg tablet, extended 5 mg PO QAM 02/20/22 02/20/22 02/20/22 07:00 History release 24 hr insulin glargine 100 unit/mL (3 32 unit SUBCUT QAM 02/20/22 02/20/22 02/20/22 History mL) subcutaneous pen (Lantus Solostar U-100 Insulin) liraglutide 0.6 mg/0.1 mL (18 mg/3 1.8 mg SUBCUT BEDTIME 02/20/22 02/20/22 History mL) subcutaneous pen injector (Victoza 3-Palmer) lisinopril 5 mg tablet 5 mg PO QAM 02/20/22 02/20/22 02/20/22 History multivitamin 1 tab PO QAM 02/20/22 02/20/22 02/20/22 History terbinafine HCl 250 mg tablet 250 mg PO QAM 02/20/22 02/20/22 02/20/22 History Allergies Allergy/AdvReac Type Severity Reaction Status Date / Time meperidine [From Demerol] Allergy Unknown Verified 02/20/22 12:26 Penicillins Allergy Unknown Verified 02/20/22 12:26 canagliflozin [From Invokana] AdvReac Mild vaginal Verified 02/20/22 12:26 itching PFSH Acute PFSH: Medical History (Updated 02/20/22 @ 14:54 by Carley Liu MD) Depression Dyslipidemia Elevated LDL cholesterol level Essential (primary) hypertension Fibromyalgia 2 Para 1 History of 2019 novel coronavirus disease (COVID-19) History of cardiovascular stress test 2020 exercise mibi, normal EKG response, normal low probability myocardial perfusion History of fracture of humerus right proximal Neuropathy Type 2 diabetes mellitus, with long-term current use of insulin Surgical History (Updated 02/20/22 @ 14:54 by Carley Liu MD) H/O: hysterectomy ~2005 History of back surgery laminectomy x 2 in 1993 and 1997 Family History (Updated 02/20/22 @ 14:55 by Carley Liu MD) Mother Leukemia mother from leukemia Family/Other CAD (coronary artery disease) uncle with heart disease Social History (Updated 02/20/22 @ 14:56 by Carley Liu MD) Smoking and tobacco status: former smoker Alcohol intake: never Substance/Drug Use: never Adopted: Yes Lives independently: Yes Marital status: Vitals/I&O/Wt Last Vital Signs Temp 97.6 F 02/20/22 08:14 Pulse 71 02/20/22 11:16 Resp 16 02/20/22 11:16 BP 125/72 02/20/22 11:16 Pulse Ox 96 02/20/22 11:16 O2 Del Method 02/20/22 11:16 Weight last 48 hrs Weight 72.575 kg Physical Exam Narrative: Constitutional: Awake and alert, able to provide history, currently resting comfortably HEENT: Normocephalic, atraumatic, pupils equally reactive, extraocular movements intact, nasopharynx with some dried mucus noted, oropharynx with moist mucous membranes, clear except for some minor postnasal drainage Neck: Supple, no JVD Respiratory: Clear to auscultation bilaterally without any rales rhonchi or wheezes noted Cardiovascular: Regular rate and rhythm, no murmurs gallops or rubs Abdomen: Soft, nontender, positive bowel sounds Extremities: No pitting edema or calf tenderness, 2+ dorsalis pedis bilaterally and 2+ radial pulses bilaterally Skin: Dry, no rashes or bruises Neuro:Speech clear, face symmetric, moves all extremities, no abnormal movements Psych: Normal affect Data 02/20/22 09:13 02/20/22 09:13 Other Labs: Radiology Impressions Chest X-Ray 02/20/22 08:22 IMPRESSION: No acute findings. Laboratory Results WBC 7.3 10^3/uL (4.0-10.0) 02/20/22 09:13 RBC 4.16 10^6/uL (4.1-5.3) 02/20/22 09:13 Hgb 13.0 g/dL (11.5-15.3) 02/20/22 09:13 Hct 39.6 % (37.0-47.0) 02/20/22 09:13 MCV 95.2 fl (81-99) 02/20/22 09:13 MCH 31.3 pg (28.0-34.0) 02/20/22 09:13 MCHC 32.8 g/dL (30.0-36.0) 02/20/22 09:13 RDW 12.4 % (12.1-15.1) 02/20/22 09:13 Plt Count 242 10^3/cmm (130-400) 02/20/22 09:13 MPV 11.4 fL (7.4-10.4) H 02/20/22 09:13 Neut % (Auto) 72.2 % 02/20/22 09:13 Lymph % (Auto) 15.9 % 02/20/22 09:13 [place] % (Auto) 10.0 % 02/20/22 09:13 Eos % (Auto) 0.8 % 02/20/22 09:13 Baso % (Auto) 0.8 % 02/20/22 09:13 Neut # (Auto) 5.25 10^3/uL (1.8-7.7) 02/20/22 09:13 Lymph # (Auto) 1.2 10^3/uL (0.8-4.8) 02/20/22 09:13 [place] # (Auto) 0.7 10^3/uL (0.2-0.9) 02/20/22 09:13 Eos # (Auto) 0.1 10^3/uL (0.0-0.8) 02/20/22 09:13 Baso # (Auto) 0.1 10^3/uL (0.0-0.1) 02/20/22 09:13 Nucleated RBC % (auto) 0 % 02/20/22 09:13 Nucleated RBCs # 0.0 /100WBC 02/20/22 09:13 Sodium 138 mmol/L (136-145) 02/20/22 09:13 Potassium 3.7 mmol/L (3.5-5.1) 02/20/22 09:13 Chloride 99 mmol/L (98-107) 02/20/22 09:13 Carbon Dioxide 26 mmol/L (22-29) 02/20/22 09:13 Anion Gap 16.7 (5-19) 02/20/22 09:13 BUN 16 mg/dL (6-20) 02/20/22 09:13 Creatinine 0.6 mg/dL (0.5-0.9) 02/20/22 09:13 GFR Calculation 102.3 mL/min (90-130) 02/20/22 09:13 Glucose 162 mg/dL (65-115) H 02/20/22 09:13 Calculated Osmolality 291 mOsm/kg (285-295) 02/20/22 09:13 Calcium 9.6 mg/dL (8.5-10.5) 02/20/22 09:13 Total Bilirubin 0.5 mg/dL (0.15-1.2) 02/20/22 09:13 AST 33 U/L (0-32) H 02/20/22 09:13 ALT 37 U/L (0-33) H 02/20/22 09:13 Alkaline Phosphatase 65 U/L (35-105) 02/20/22 09:13 Troponin T Baseline 48 ng/L (0-10) H 02/20/22 09:13 Troponin T 120 Minute 92.75 ng/L (0-10) H 02/20/22 11:00 Delta Troponin T 44.75 ABS# (0-10) H* 02/20/22 11:00 Total Protein 6.6 g/dL (6.6-8.7) 02/20/22 09:13 Albumin 4.2 g/dL (3.5-5.2) 02/20/22 09:13 Globulin 2.4 g/dL (1.3-4.6) 02/20/22 09:13 A&P Assessment and plan (1) Non-ST elevation [place] (NSTEMI): Takes daily aspirin No prior history of coronary artery disease Had unremarkable exercise MIBI in 2019 (2) Essential (primary) hypertension: Chronically on lisinopril and hydrochlorothiazide (3) Dyslipidemia: Chronically on atorvastatin (4) Type 2 diabetes mellitus, with long-term current use of insulin: Chronically on glipizide, metformin, Victoza and Lantus Qualifiers: Diabetes mellitus complication status: without complication Qualified Code(s): E11.9 - Type 2 diabetes mellitus without complications; Z79.4 - terminal worker (current) use of insulin Plan Significant fatigue Fibromyalgia and depression, on chronic venlafaxine, at baseline and currently described symptoms are new for patient Onychomycosis, on terbinafine Inpatient admission Continue aspirin therapy Nitroglycerin as needed for recurrent chest pain/upper shoulder upper back pain Telemetry monitoring Continue heparin drip that has been administered in the emergency room Cardiology consultation, discussed with Dr. Daniel and tentative plan is for arteriogram tomorrow if remains stable today Continue serial troponin and EKGs Continue home atorvastatin Check lipid panel Check hemoglobin A1c Check TSH Monitor blood pressures Received home lisinopril and hydrochlorothiazide today, will hold additional doses pending further evaluation as may benefit from initiation of beta-blockade or need for nitrates Continue a lower dose of home Lantus with sliding scale insulin Hold home glipizide and metformin, will need to hold metformin 48 hours postcontrast Continue home venlafaxine Presently holding biotin, co-Q10 and multivitamin Supportive care otherwise Anticipate discharge home with outpatient follow-up both the primary care provider Dr. Laurent as well as cardiology Findings, concerns and plans were discussed with patient and she was given an opportunity to ask questions Full code Attestations Medical Necessity Statement*: Currently anticipate a stay greater than 2 midnights in a patient presenting with NSTEMI with no prior history of CAD. Requires further cardiac evaluation, monitoring and medication adjustments as described. Coding Level of Care Code Acute Biological Chemist for g Fwd Diagnoses Non-ST elevation [place] (NSTEMI) I21.4 Essential (primary) hypertension I10 Dyslipidemia E78.5 Type 2 diabetes mellitus, with long-term current use of insulin E11.9; Z79.4 Diabetes mellitus complication status: without complication
--- NOTE | 2022-02-20 13:24 | USCV_ITS ---
Kathie Angel Age: 61 Gender: F : 1960 Exam Date: 02/20/2022 14:06 Ordering Phys: Carley Liu MD Technologist: Syed Juarez Exam Location: [facility] Indication: NSTEMI BP: 115 / 79 HR: 69 Rhythm: Sinus Technical Quality: Adequate MEASUREMENTS (Male / Female) Normal Values 2D ECHO LV Diastolic Diameter PLAX 3.4 cm 4.2 - 5.9 / 3.9 - 5.3 cm LV Systolic Diameter PLAX 2.5 cm IVS Diastolic Thickness 1.1 cm 0.6 - 1.0 / 0.6 - 0.9 cm IVS Systolic Thickness 1.3 cm LVPW Diastolic Thickness 1.1 cm 0.6 - 1.0 / 0.6 - 0.9 cm LVPW Systolic Thickness 1.2 cm LVOT Diameter 2.0 cm LV Ejection Fraction 2D Teich 53.3 % LV Ejection Fraction MOD 2C 77.0 % LV Ejection Fraction 2C AL 77.0 % LA Diameter 3.3 cm Aorta at Sinotubular Diameter 2.4 cm M-MODE Aortic Annulus Diameter 3.8 cm LA Ao Ratio MM 0.9 MV E Point Septal Separation 0.8 cm DOPPLER AV Peak Velocity 139.0 cm/s LVOT Peak Velocity 102.0 cm/s AV Area Cont Eq vti 2.5 cm squared AV Area Cont Eq pk 2.3 cm squared MV Area PHT 5.0 cm squared Mitral E to A Ratio 1.0 MV E' Velocity 48.5 cm/s Mitral E to MV E' Ratio 13.4 Mitral E to LV E' Lateral Ratio 13.0 Mitral E to LV E' Septal Ratio 13.8 TR Peak Velocity 168.5 cm/s TR Peak Gradient 11.4 mmHg TV Peak E Velocity 92.0 cm/s Right Atrial Pressure 3.0 mmHg Pulmonary Artery Systolic Pressu 14.4 mmHg PV Peak Velocity 87.0 cm/s RV Acceleration Time 0.1 s FINDINGS Left Ventricle Normal left ventricular size, systolic function and wall thickness, with no regional wall motion abnormalities. Left ventricular ejection fraction is estimated at 65 %. Normal diastolic function. Right Ventricle Normal right ventricular size and systolic function. Right ventricular systolic pressure 19 mmHg. Right Atrium Normal right atrial size. Left Atrium Normal left atrial size. Mitral Valve Mild mitral annular calcification. Structurally normal mitral valve. No mitral valve stenosis. No mitral valve regurgitation. Aortic Valve Structurally normal trileaflet aortic valve. No aortic valve stenosis. No aortic valve regurgitation. Tricuspid Valve Structurally normal tricuspid valve. Trace tricuspid valve regurgitation. Pulmonic Valve Structurally normal pulmonic valve. No pulmonary valve stenosis. No pulmonary valve regurgitation. Pericardium No pericardial effusion. Aorta Normal size aortic root and proximal ascending aorta. IVC Inferior vena cava not visualized. CONCLUSIONS 1. Normal left ventricular size, systolic function and wall thickness, with no regional wall motion abnormalities. Left ventricular ejection fraction is estimated at 65 %. Normal diastolic function. 2. No significant valvular abnormality. 3. Normal pulmonary artery pressure. 4. No prior similar studies to compare. Iris Mancia MD (Electronically Signed) Final Date: 20 February 2022 18:05 S
[2022-02-20 13:46] LABS: INR 0.99 (0.8-1.2)
[2022-02-20 13:47] LABS: Partial Thromboplastin Time 29.5 SECONDS (23.9-36.7)
[2022-02-20 14:21] LABS: NT Pro B Type Natriuretic Pept 31 pg/mL (0-125)
--- NOTE | 2022-02-20 14:23 | ECG_ITS ---
[facility] Test Date: 2022-02-20 Pat Name: Kathie Angel Department: Room: Gender: Female Automatic Typewriter Inspector: : 1960 Requested By: Doug Pires Order Number: [id number] Ken MD: Iris Mancia M.D. Measurements Intervals [place] Rate: 70 P: 41 [place]: 175 QRS: -20 QRSD: 88 T: 32 QT: 377 QTc: 409 Interpretive Statements SINUS RHYTHM Compared to ECG 02/20/2022 11:50:06 No significant changes Electronically Signed On 02-20-2022 18:09:42 ROVING SIZER by Iris Mancia M.D. [id number]
[2022-02-20 15:44] LABS: Troponin 5 6HR 67.16 ng/L (0-10)
[2022-02-20 16:00] LABS: Troponin 5 6HR Delta 19.16 ng/L (0-12)
[2022-02-20] MEDS: docusate sodium 100 mg Capsule PO (18:26)
--- NOTE | 2022-02-20 19:05 | PC.NURSE ---
received into room 105 from er at 1810.report received.pt denies cp at present.sr on monitor.oriented to room environment.instructed to notify staff for any cp,sob,sweating,dizziness..or for any concerns at all.pt verb understanding of instructions
[2022-02-20 19:15] LABS: Partial Thromboplastin Time 102.7 SECONDS (23.9-36.7)
[2022-02-20 19:54] LABS: Glucose Point of Care 211 mg/dL (70-110)
[2022-02-20] MEDS: insulin lispro 100 unit/1 mL SUBCUT (20:18)
[2022-02-21] VITALS (44 sets, daily range): BP systolic 115–157; BP diastolic 64–90; PULSE 57–81; RESP 6–20; TEMP 37.1; O2SAT 89–97
[2022-02-21 02:27] LABS: Partial Thromboplastin Time 78.1 SECONDS (23.9-36.7)
[2022-02-21 02:42] LABS: Anion Gap 13.3 (5-19); Blood Urea Nitrogen 16 mg/dL (6-20); Calcium 9.3 mg/dL (8.5-10.5); Carbon Dioxide 28 mmol/L (22-29); Chloride 101 mmol/L (98-107); Chol HDL Ratio 3.24 mg/dL (0.0-4.40); Cholesterol 107 mg/dL (0-200); Creatinine Clr Calc Pharmacy 122.1782; Glomerular Filtration Rate 126.3 mL/min (90-130); Glucose 268 mg/dL (65-115); HDL Cholesterol 33 mg/dL (60-100); LDL Cholesterol Calculated 22 mg/dL (50-129); LDL HDL Ratio 0.67 RATIO (0.00-3.22); Magnesium 1.7 mg/dL (1.7-2.3); Osmolality Calculated 299 mOsm/kg (285-295); Phosphorus 3.8 mg/dL (2.5-4.5); Potassium 3.3 mmol/L (3.5-5.1); Sodium 139 mmol/L (136-145); Thyroid Stimulating Hormone 2.64 uIU/mL (0.27-4.20); Triglycerides 259 mg/dL (0-150)
[2022-02-21 05:58] LABS: Glucose Point of Care 189 mg/dL (70-110)
[2022-02-21] MEDS: venlafaxine ER (24HR) 75 mg Capsule PO (05:59)
[2022-02-21] MEDS: atorvastatin 40 mg Tablet PO (05:59)
[2022-02-21] MEDS: aspirin 81 mg EC Tablet 162 MG PO (05:59)
--- NOTE | 2022-02-21 07:58 | PM.CONSULT ---
Providers/Reason For Consult Consulting Physician/Specialty*: Adis Daniel MD/ Cardiology Reason for Consult*: NSTEMI Requesting Physician: Dr Liu Attending Physician: Michael Conteh MD Primary Care Provider: Lydia Laurent DO History of Present Illness History of Present Illness Kathie Angel is a 61 year old female with past medical history of hypertension, and diabetes who had an episode of palpitations associated with the bilateral shoulder and arm pain that lasted for about 15 to 20 minutes. Had pressure-like feeling of heaviness in the chest. She has on and off discomfort in the back and shoulders that has worsened recently troponins did trend up significantly from 48 at baseline to 92 at 2 hours. EKG not showing significant ischemic changes. Echo shows normal LV systolic function Review of Systems Const: Reports: fatigue (cannot seem to get enough rest) and malaise; Denies: diaphoresis ENMT: Reports: nasal congestion; Denies: throat pain Card: Reports: chest pain, palpitations and dyspnea on exertion; Denies: edema, syncope or orthopnea Resp: Reports: dyspnea; Denies: productive cough, non-productive cough or pain on inspiration GI: Reports: constipation; Denies: abdominal pain, nausea, vomiting or hematochezia : Denies: difficulty voiding Musc: Reports: other (muscle aches from fibromyalgia, today's pains in shoulders very different) Skin/Breast: Denies: rash or sores Neuro: Denies: numbness in extremities, weakness in extremities or sensory changes Psych: Denies: anxiety, depression (controlled with meds) or panic attacks Endo: Reports: tired all the time Robert/Lymph: Denies: easy bleeding Medications/Allergies Home Medications Medication Instructions Recorded Confirmed Last Taken Type aspirin 81 mg tablet,delayed 162 mg PO QAM 08/07/19 02/20/22 02/20/22 History release hydrochlorothiazide 25 mg tablet 25 mg PO QAM #90 tabs 10/09/21 02/20/22 02/20/22 Rx metformin 500 mg tablet 1,000 mg PO BID #360 tabs 10/09/21 02/20/22 02/20/22 Rx venlafaxine 75 mg capsule,extended 75 mg PO QAM #90 caps 10/09/21 02/20/22 02/20/22 Rx release 24 hr (Effexor XR) atorvastatin 40 mg tablet 40 mg PO QAM 02/20/22 02/20/22 02/20/22 07:00 History biotin 10,000 mcg capsule 10,000 mcg PO QAM 02/20/22 02/20/22 02/20/22 History coenzyme Q10 100 mg capsule 100 mg PO DAILY 02/20/22 02/20/22 2 Weeks Ago History (CoQ-10) ~02/06/22 not taken for 2 week glipizide 5 mg tablet, extended 5 mg PO QAM 02/20/22 02/20/22 02/20/22 07:00 History release 24 hr insulin glargine 100 unit/mL (3 32 unit SUBCUT QAM 02/20/22 02/20/22 02/20/22 History mL) subcutaneous pen (Lantus Solostar U-100 Insulin) liraglutide 0.6 mg/0.1 mL (18 mg/3 1.8 mg SUBCUT BEDTIME 02/20/22 02/20/22 02/19/22 History mL) subcutaneous pen injector (Gamblit Gamingza 3-Palmer) lisinopril 5 mg tablet 5 mg PO QAM 02/20/22 02/20/22 02/20/22 History multivitamin 1 tab PO QAM 02/20/22 02/20/22 02/20/22 History terbinafine HCl 250 mg tablet 250 mg PO QAM 02/20/22 02/20/22 02/20/22 History Allergies Allergy/AdvReac Type Severity Reaction Status Date / Time meperidine [From Demerol] Allergy Unknown Verified 02/20/22 12:26 Penicillins Allergy Unknown Verified 02/20/22 12:26 canagliflozin [From Invokana] AdvReac Mild vaginal Verified 02/20/22 12:26 itching Current Medications Generic Name Dose Route Start Last Admin Trade Name Freq PRN Reason Stop Dose Admin Aspirin 162 mg 02/21/22 06:00 02/21/22 05:59 Aspirin 81 Mg Ec Tablet PO 162 mg QAM MIRIAM Administration Atorvastatin Calcium 40 mg 02/21/22 06:00 02/21/22 05:59 Atorvastatin 40 Mg Tablet PO 40 mg QAM MIRIAM Administration Docusate Sodium 100 mg 02/20/22 18:03 02/20/22 18:26 Docusate Sodium 100 Mg Capsule PO 100 mg BID MIRIAM Administration Heparin Sodium/Sodium Chloride 25,000 unit in 500 mls @ 0 mls/hr 02/20/22 12:30 02/21/22 02:42 Heparin Drip IV 10.33 unit/kg/hr .Q0M MIRIAM 15 mls/hr Titration Protocol Per Protocol Insulin Glargine 20 unit 02/21/22 06:00 02/21/22 06:01 Insulin Glargine 100 Units/1 Ml SUBCUT Not Given QAM MIRIAM Insulin Human Lispro 0 unit 02/20/22 21:00 02/20/22 20:18 Insulin Lispro 100 Unit/1 Ml SUBCUT 2 unit BEDTIME MIRIAM Administration Protocol Insulin Human Lispro 0 unit 02/20/22 18:03 02/20/22 18:22 Insulin Lispro 100 Unit/1 Ml SUBCUT Not Given TIDWM MIRIAM Protocol Venlafaxine HCl 75 mg 02/21/22 06:00 02/21/22 05:59 Venlafaxine Er (24hr) 75 Mg Capsule PO 75 mg QAM MIRIAM Administration PFSH Acute PFSH: Medical History Depression Dyslipidemia Elevated LDL cholesterol level Essential (primary) hypertension Fibromyalgia 2 Para 1 History of 2019 novel coronavirus disease (COVID-19) History of cardiovascular stress test 2020 exercise mibi, normal EKG response, normal low probability myocardial perfusion History of fracture of humerus right proximal Neuropathy Type 2 diabetes mellitus, with long-term current use of insulin Surgical History H/O: hysterectomy ~2005 History of back surgery laminectomy x 2 in 1993 and 1997 Family History Mother Leukemia mother from leukemia Family/Other CAD (coronary artery disease) uncle with heart disease Social History Smoking and tobacco status: former smoker Alcohol intake: never Substance/Drug Use: never Adopted: Yes Lives independently: Yes Marital status: Vitals/I&O/Wt Last Vital Signs Temp 98.7 F 02/21/22 07:21 Pulse 81 02/21/22 07:21 Resp 14 02/21/22 07:21 BP 157/90 02/21/22 07:21 Pulse Ox 97 02/21/22 07:21 O2 Del Method 02/21/22 07:21 02/20/22 02/21/22 02/21/22 22:59 06:59 14:59 Intake Total 136 / 136 114.133 / 250.133 Balance 136 / 136 114.133 / 250.133 Weight last 48 hrs Weight 156 lb Weight 160 lb Physical Exam Narrative: GENERAL: Patient is alert, awake and oriented x3. [] NECK: No jugular vein distension. [] HEENT: No cyanosis. No icterus. No pallor. [] HEART: Regular S1 and S2. No murmur, rub or gallop. [] LUNGS: Clear to auscultate bilaterally. [] CENTRAL NERVOUS SYSTEM: Grossly nonfocal. [] EXTREMITIES: Lower extremities with no edema bilaterally. Pulses palpable in the lower extremities, both dorsalis pedis and posterior tibial. [] Data 02/20/22 09:13 02/21/22 01:41 A&P Assessment and plan (1) Non-ST elevation CT (NSTEMI): (2) Type 2 diabetes mellitus, with long-term current use of insulin: Qualifiers: Diabetes mellitus complication status: without complication Qualified Code(s): E11.9 - Type 2 diabetes mellitus without complications; Z79.4 - skilled nursing (current) use of insulin (3) Essential (primary) hypertension: Plan Patient has presented with palpitations, chest pain and troponin elevation. Findings consistent with non-ST elevation CT. We will proceed with coronary angiogram. Risks and benefits of the procedure been discussed in detail with the patient. She understands the risks and benefits and wants to proceed with it. Continue aspirin. Continue anticoagulation Echocardiogram shows normal LV systolic function. Thank you for involving us with care of this patient. We will continue to follow. Please call with questions Consult Attestations Medical Necessity Statement: Care expected to cross 2 midnights. Coding Level of Care Code Acute Radio Tower Technician for Nikita Oroscod Diagnoses Non-ST elevation CT (NSTEMI) I21.4 Type 2 diabetes mellitus, with long-term current use of insulin E11.9; Z79.4 Diabetes mellitus complication status: without complication Essential (primary) hypertension I10
[2022-02-21] MEDS: docusate sodium 100 mg Capsule PO (09:44)
[2022-02-21 10:59] LABS: Glucose Point of Care 177 mg/dL (70-110)
--- NOTE | 2022-02-21 11:01 | XACV_ITS ---
Exam Room: [facility] Ht: 168 cm Wt: 71 kg BSA: 1.83 m2 Gender: Female : 1960 Any Known Allergies: Other Exam Priority: Routine Procedure(s): Procedure Description: Diagnostic procedure Procedure Description: Left Heart Catheterization Procedure Description: Coronary Angiography Diagnostic Cath Status: Urgent Diagnostic Findings * INDICATION: 61 year old female with past medical history of hypertension, and diabetes who had an episode of palpitations associated with the bilateral shoulder and arm pain that lasted for about 15 to 20 minutes. Had pressure-like feeling of heaviness in the chest. She has on and off discomfort in the back and shoulders that has worsened recently troponins did trend up significantly from 48 at baseline to 92 at 2 hours. EKG not showing significant ischemic changes. * Left main artery: Patent LAD: Has mild luminal irregularities. No significant stenosis Left circumflex artery: Has mild luminal irregularities. No significant stenosis. RCA: Has distal 20 to 30% stenosis.. * Coronary angiography shows right dominance. Conclusions 1. Left main artery: Patent LAD: Has mild luminal irregularities. No significant stenosis Left circumflex artery: Has mild luminal irregularities. No significant stenosis. RCA: Has distal 20 to 30% stenosis.. 2. Non obstructive CAD. Recommendations * Aggressive risk factor modification. * Outpatient cardiology follow up in 4 weeks. Interventional RX Recommendation: medical therapy and/or counseling Diagnostic RX Recommendation: medical therapy and/or counseling Anticoagulation: Heparin Pressures Phase:Rest AO : 149 / 88 ( 114 ) @ 11:29:00 AM 158 / 91 ( 119 ) @ 11:29:00 AM 162 / 92 ( 123 ) @ 11:29:00 AM LV : 153 / -13 / 17 @ 11:28:00 AM 155 / -14 / 13 @ 11:29:00 AM Valves Phase:DefaultPhase AV : 8.0 @ 11:34:45 AM 8.0 @ 11:34:45 AM AV Mean Gradient: 17.0 @ 11:34:45 AM Clinical Evaluation EBL: 5mL-10mL Procedural Details Procedure Consent Obtained. Admit Source: In Patient. Pre-Procedure Time Out. Identified patient by full name and date of as verbalized by the patient/guarantor. Does the consent match the physician's order: Yes. Accurate & Complete Informed Consent: Yes. Inpatient/Outpatient History & Physical on Chart: Yes. If H&P is completed, is and addenduem needed: No; If yes, is the addendum complete: N/A. Visualize and Verify Site with Patient/Guarantor: N/A. Relevant Radiology Images available: N/A. Pre-op teaching completed and patient verbalized understanding. The risks, benefits, and alternatives of sedation and/or procedure were discussed by physician. The patient agrees to continue. Procedure started. [facility] Clinical Fraility Score: 3: Managing Well. Media Supervisor Indications: Worsening Angina, Nstemi. Chest Pain Symptom Assessment: Typical Angina Symptoms. Correct patient, site and procedure confirmed by cath team. Current diagnosis: NSTEMI. PERRLA. Strong, equal hand cotton bag sewer bilaterally. Lungs clear x 5 lobes. IV Site on Arrival: 20 gauge in the right anticubital. IV Fluids: 0.9% NaCl at KVO. 0 mL infused prior to laboratory animal facility supervisor. Pre Procedural Pulses: bilateral radial was 3+. Pre Procedural Pulses: bilateral dorsalis pedis was 3+. Pre Procedural Pulses: bilateral posterior tibial was 2+. Oxygen started at 2liters/min via nasal canula. right radial was prepped with chloroprep then draped in the usual sterile fashion. right groin was prepped with chloroprep then draped in the usual sterile fashion. Physician notified. Physician arrived. Baseline sample Acquired. HR: 63 BPM. Physician scrubbed in. Immediate Pre-Procedure Time Out. Correct Patient: Yes; Correct Procedure: Yes; Correct Site: Yes; Correct Patient Position: Yes; Correct Supplies: Yes; Dried Flammable Prep: Yes; Blood Products Available: No;. Lidocaine 1% infiltrated to the right radial. Arterial access obtained. A 5 polish TIG catheter in over exchange wire. Exchange wire out. Multiple views taken of left coronary artery. Catheter redirected to the RCA. Multiple views taken of right coronary artery. Exchange wire in through tiger catheter, attempting to cross aortic valve. Exchange wire out. EDP Sample taken: LV 153/-14,17; HR: 78 BPM; SpO2: 96%. Pullback taken: LV 155/-15,13; AO 149/88(114); Mean: 17mmHg, Peak to Peak: 8mmHg, SEP: 20sec/min; HR: 78 BPM; SpO2: 96%. Catheter removed over the exchange wire. Post Procedure: Pulses reassessed and unchanged. PERRLA. Strong, equal hand cotton bag sewer bilaterally. No VTE prophylaxis required. A TR Band was successful obtaining hemostatsis at the Right Radial artery insertion site. Medication's Wasted: Lidocaine 1% = 3 mL. Medication's Wasted: Nitro = 49.8 mg. Medication's Wasted: Heparin = 4000 unit. Medication's Wasted: Other = Fentanyl 50 mcg. Total IV fluids: 18 mL. Post-op diagnosis: Non-obstructive CAD. Complications: None. Estimated blood loss: 5mL-10mL. Responsiveness - Normal response to verbal stimuli; alert and oriented, PERRLA. Airway - Unaffected, no intervention required; spontaneous ventilation. Circulation: W/N/L, pulses unchanged. Nausea/Vomiting: N/A. Procedure completed. Patient transferred by wheelchair to 1st floor. Vital chart was stopped. Access Site Site: Right Radial artery Sheath Size: 6 Fr Hemostasis Method: TR Band Hemostasis Success: Successful Procedure Medications Start: 11:18 AM Stop: 11:18 AM Medication: Versed Amount: 1 mg Route: I.V. Start: 11:18 AM Stop: 11:18 AM Medication: Fentanyl Amount: 50 mcg Route: I.V. Start: 11:22 AM Stop: 11: AM Medication: Nitrogylcerin Amount: 200 mcg Route: I.A. Start: 11:23 AM Stop: 11:23 AM Medication: Versed Amount: 1 mg Route: I.V. Start: 11:24 AM Stop: 11:24 AM Medication: Heparin Amount: 2000 units Route: I.V. I, the attending physician, have reviewed and verified all procedure medications. Yes, all medications given per verbal order History/Risk Factors Hypertension: Yes Dyslipidemia: Yes Peripheral Arterial Disease (PAD): No Myocardial Infarction (PR): No Obesity: No Renal Disease: No Tobacco Use: Former Prior Interventions PCI: No CABG: No Valve Surgery: No Report Signatures Finalized by Adis Daniel MD on 03/06/2022 08:17 AM
--- NOTE | 2022-02-21 11:13 | W.PM.OPSUD ---
Surgery/Procedure H&P Update DATE OF PROCEDURE: February 21, 2022 DATE H&P PERFORMED: 02/21/22 H&P UPDATE INFORMATION: I have reviewed H&P completed within last 30 days, I have examined patient prior to procedure and No changes to prior documentation PREOP DIAGNOSIS: NSTEMI PRIMARY INDICATION FOR PROCEDURE: NSTEMI PLANNED PROCEDURE: Left heart cath with possible percutaneous coronary intervention PATIENT REASSESSED PRIOR TO SEDATION, WITH NO CHANGE NOTED: Yes PHYSICAL EXAM: alert, oriented x 3, clear to auscultation bilaterally and regular rate & rhythm AIRWAY EVAL/ANESTHESIA PLAN: ASA III, Local Anesthesia, Risks, benefits & alternatives of sedation and/or procedure discussed and Patient agrees to continue as planned ADDITIONAL INFORMATION: Moderate sedation
--- NOTE | 2022-02-21 11:47 | SUR.PHASEI ---
Received the patient back from the production laborer at 1130 via Wheelchair s/p diagnostic [facility]. patient ambulated to the bed. Drowsy, but awakens easily to voice commands. alert and orientated x 3. right wrist with intact TR band. no bleeding or hematoma noted. palpable radial pulse. monitor technician placed and vital signs obtained. spouse at bedside. no concerns voiced at this time. will transfer to [facility] shortly.
--- NOTE | 2022-02-21 11:57 | PM.DCS ---
Discharge Providers Date of Admission: 02/20/22 12:09 Date of Discharge: February 21, 2022 Attending Provider at Admission: Carley Liu MD Attending Provider at Discharge: Michael Conteh MD Consults: Cardiology:Dr. 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 Had pressure-like feeling of heaviness in the chest.? She has on and off discomfort in the back and shoulders that has worsened recently troponins did trend up significantly from 48 at baseline to 92 at 2 hours. EKG not showing significant ischemic changes.? Echo shows normal LV systolic function. Patient underwent cardiac angiogram on 02/21. Cardiac angiogram was found to be reportedly nonobstructive(full report is not present with me currently). During hospitalization patient did not have any further chest pain. Patient was found to have elevated blood sugars for which she was advised in detail for further lifestyle management and to follow-up with a primary care provider for further adjustment of antidiabetic's. She has been discharged on event monitor to further evaluate the palpitations. She is to follow-up with cardiology office within next 1 week. Physical Exam Narrative: Constitutional: Awake and alert, able to provide history, currently resting comfortably HEENT: Normocephalic, atraumatic, pupils equally reactive, extraocular movements intact, nasopharynx with some dried mucus noted, oropharynx with moist mucous membranes, clear except for some minor postnasal drainage Neck: Supple, no JVD Respiratory: Clear to auscultation bilaterally without any rales rhonchi or wheezes noted Cardiovascular: Regular rate and rhythm, no murmurs gallops or rubs Abdomen: Soft, nontender, positive bowel sounds Extremities: No pitting edema or calf tenderness, 2+ dorsalis pedis bilaterally and 2+ radial pulses bilaterally Skin: Dry, no rashes or bruises Neuro:Speech clear, face symmetric, moves all extremities, no abnormal movements Psych: Normal affect Discharge Data Studies Completed and Pending Completed Studies During Hospitalization Category Date Time Status XR chest 1V portable [id number] Stat Exams 02/20/22 08:22 Completed CV. echo complete* [id number] Stat Ultrasound 02/20/22 13:24 Completed Pending at discharge Category Date Time Status DRAFTSPERSON request for service Routine Exams 02/21/22 11:01 Ordered B12 [Vitamin B12] Routine Lab 02/21/22 01:41 Received Complete Blood Count w/Auto AM LABS Lab 02/22/22 04:00 Ordered Comprehensive Metabolic Panel AM LABS Lab 02/22/22 04:00 Ordered Folate Level Routine Lab 02/21/22 10:18 Received Platelet Count Q2D Lab 02/22/22 04:00 Ordered Platelet Count Q2D Lab 02/24/22 04:00 Ordered TIBC [Total Iron Binding Capacity] Routine Lab 02/21/22 01:41 Received Radiology Impressions Chest X-Ray 02/20/22 08:22 IMPRESSION: No acute findings. Echocardiogram: ?CONCLUSIONS ?1. Normal left ventricular size, systolic function and wall ?thickness, with no regional wall motion abnormalities. Left ?ventricular ejection fraction is estimated at 65 %. Normal ?diastolic function. ?2.? No significant valvular abnormality.? ?3.? Normal pulmonary artery pressure.? ?4.? No prior similar studies to compare. ?Iris Mancia MD ?(Electronically Signed) ?Final Date:? ? ? 20 February 2022 ? 18:05 Laboratory Results WBC 7.3 10^3/uL (4.0-10.0) 02/20/22 09:13 RBC 4.16 10^6/uL (4.1-5.3) 02/20/22 09:13 Hgb 13.0 g/dL (11.5-15.3) 02/20/22 09:13 Hct 39.6 % (37.0-47.0) 02/20/22 09:13 MCV 95.2 fl (81-99) 02/20/22 09:13 MCH 31.3 pg (28.0-34.0) 02/20/22 09:13 MCHC 32.8 g/dL (30.0-36.0) 02/20/22 09:13 RDW 12.4 % (12.1-15.1) 02/20/22 09:13 Plt Count 242 10^3/cmm (130-400) 02/20/22 09:13 MPV 11.4 fL (7.4-10.4) H 02/20/22 09:13 Neut % (Auto) 72.2 % 02/20/22 09:13 Lymph % (Auto) 15.9 % 02/20/22 09:13 [place] % (Auto) 10.0 % 02/20/22 09:13 Eos % (Auto) 0.8 % 02/20/22 09:13 Baso % (Auto) 0.8 % 02/20/22 09:13 Neut # (Auto) 5.25 10^3/uL (1.8-7.7) 02/20/22 09:13 Lymph # (Auto) 1.2 10^3/uL (0.8-4.8) 02/20/22 09:13 [place] # (Auto) 0.7 10^3/uL (0.2-0.9) 02/20/22 09:13 Eos # (Auto) 0.1 10^3/uL (0.0-0.8) 02/20/22 09:13 Baso # (Auto) 0.1 10^3/uL (0.0-0.1) 02/20/22 09:13 Nucleated RBC % (auto) 0 % 02/20/22 09:13 Nucleated RBCs # 0.0 /100WBC 02/20/22 09:13 PT 13.40 SECONDS (12.1-14.9) 02/20/22 09:13 INR 0.99 (0.8-1.2) 02/20/22 09:13 APTT 69.0 SECONDS (23.9-36.7) H 02/21/22 09:43 Sodium 139 mmol/L (136-145) 02/21/22 01:41 Potassium 3.3 mmol/L (3.5-5.1) L 02/21/22 01:41 Chloride 101 mmol/L (98-107) 02/21/22 01:41 Carbon Dioxide 28 mmol/L (22-29) 02/21/22 01:41 Anion Gap 13.3 (5-19) 02/21/22 01:41 BUN 16 mg/dL (6-20) 02/21/22 01:41 Creatinine 0.5 mg/dL (0.5-0.9) 02/21/22 01:41 GFR Calculation 126.3 mL/min (90-130) 02/21/22 01:41 Glucose 268 mg/dL (65-115) H 02/21/22 01:41 POC Glucose 177 mg/dL (70-110) H 02/21/22 10:51 Calculated Osmolality 299 mOsm/kg (285-295) H 02/21/22 01:41 Calcium 9.3 mg/dL (8.5-10.5) 02/21/22 01:41 Phosphorus 3.8 mg/dL (2.5-4.5) 02/21/22 01:41 Magnesium 1.7 mg/dL (1.7-2.3) 02/21/22 01:41 Total Bilirubin 0.5 mg/dL (0.15-1.2) 02/20/22 09:13 AST 33 U/L (0-32) H 02/20/22 09:13 ALT 37 U/L (0-33) H 02/20/22 09:13 Alkaline Phosphatase 65 U/L (35-105) 02/20/22 09:13 Troponin T Baseline 48 ng/L (0-10) H 02/20/22 09:13 Troponin T 120 Minute 92.75 ng/L (0-10) H 02/20/22 11:00 Delta Troponin T 44.75 ABS# (0-10) H* 02/20/22 11:00 Troponin T Hi Sens 6Hr 67.16 ng/L (0-10) H 02/20/22 15:04 Troponin T Hi Sens 6Hr Delta 19.16 ng/L (0-12) H* 02/20/22 15:04 NT-Pro-B Natriuret Pep 31 pg/mL (0-125) 02/20/22 09:13 Total Protein 6.6 g/dL (6.6-8.7) 02/20/22 09:13 Albumin 4.2 g/dL (3.5-5.2) 02/20/22 09:13 Globulin 2.4 g/dL (1.3-4.6) 02/20/22 09:13 Triglycerides 259 mg/dL (0-150) H 02/21/22 01:41 Cholesterol 107 mg/dL (0-200) 02/21/22 01:41 LDL Cholesterol, Calc 22 mg/dL (50-129) L 02/21/22 01:41 HDL Cholesterol 33 mg/dL (60-100) L 02/21/22 01:41 LDL/HDL Ratio 0.67 RATIO (0.00-3.22) 02/21/22 01:41 Cholesterol/HDL Ratio 3.24 mg/dL (0.0-4.40) 02/21/22 01:41 TSH 2.64 uIU/mL (0.27-4.20) 02/21/22 01:41 Vitals Last Vital Signs Temp 98.7 F 02/21/22 07:21 Pulse 63 02/21/22 11:45 Resp 13 02/21/22 11:45 BP 126/64 02/21/22 11:45 Pulse Ox 93 02/21/22 11:45 O2 Del Method 02/21/22 11:45 Discharge Plan Discharge Patient Disposition: Home Condition: Stable Prescriptions: Continued metformin 500 mg tablet 1,000 mg PO BID Qty: 360 1RF hydrochlorothiazide 25 mg tablet 25 mg PO QAM Qty: 90 1RF venlafaxine [Effexor XR] 75 mg capsule,extended release 24hr 75 mg PO QAM Qty: 90 1RF aspirin 81 mg tablet,delayed release (DR/EC) 162 mg PO QAM multivitamin Tablet 1 tab PO QAM biotin 10,000 mcg Capsule 10,000 mcg PO QAM CoQ-10 100 mg Capsule 100 mg PO DAILY atorvastatin 40 mg tablet 40 mg PO QAM glipizide 5 mg tablet extended release 24hr 5 mg PO QAM terbinafine HCl 250 mg tablet 250 mg PO QAM lisinopril 5 mg tablet 5 mg PO QAM Lantus Solostar U-100 Insulin 100 unit/mL (3 mL) insulin pen 32 unit SUBCUT QAM Victoza 3-Palmer 0.6 mg/0.1 mL (18 mg/3 mL) pen injector 1.8 mg SUBCUT BEDTIME Discharge Orders: Discharge Order (Routine); Ordered 02/21/22 Ordered By: Michael Conteh Other Ambulatory Orders: MCT/Event Monitor 21 Days (Routine) Timeframe: 1 Week Facility: [facility] - Location: Radiology Ordered By: Michael Conteh Referrals: Lydia Laurent DO [Primary Care Provider] - 7-10 days Adis Daniel M.D [Physician] - 1 month Leidy Deluna FNP [Nurse Practitioner] - 7-10 days Discharge Diet: Cardiac and Diabetic Discharge Activity: Resume usual activity and Increase activity as tolerated Patient Instructions: Opioid Safety Activity Restrictions/Additional Instructions: Follow-up with a primary care provider within next 1 week and cardiology nurse practitioner within 1 week. Lifestyle modifications are discussed in detail. Try to have more regular regulated meals with infrequent snacking's in between. Try to check her blood sugars daily at home and maintain a blood pressure diary. Please check your blood pressure daily at home and maintain a blood pressure diary and follow the primary care provider within next 1 week for further adjustment of antihypertensives and antidiabetic medications as needed. Discharge Attestations Time Spent in Discharge Care*: greater than 30 min Specific Discharge Activities: educating patient, educating and/or supporting family/caregiver, discussing with pcp/other providers, discussing with watch case polisher/social workers/dc planners, documenting/other paperwork and evaluating patient/reviewing data Status at Discharge: Cognitive status at discharge: cognitively intact, Behavioral status at discharge: cooperative, Functional status at discharge: independent ambulation, Overall status at discharge: patient is back to baseline Quality Metrics Clinical Quality Measures [ No reported AMI, CVA or VTE this stay] Coding Level of Care Code Acute [facility] DC note Diagnoses Non-ST elevation MA (NSTEMI) I21.4 Type 2 diabetes mellitus, with long-term current use of insulin E11.9; Z79.4 Diabetes mellitus complication status: without complication Essential (primary) hypertension I10
[2022-02-21 12:01] LABS: Iron 72 ug/dL (37-145); Percent Saturation 23.4 % (20-50); Total Iron Binding Capacity 307 mcg/dl; Unsaturated Iron Binding 235 ug/dL (112-347); Vitamin B12 628 pg/mL (232-1245)
[2022-02-21 12:03] LABS: Folate Level > 20.0 ng/mL (4.8-37.3)
--- NOTE | 2022-02-21 12:07 | SUR.PHASEI ---
Patient transferred via wheelchair to room 106 by Kain Esposito RN, PIN MACHINE TENDER. Bedside report given to assuming nurse.
--- NOTE | 2022-02-21 12:57 | PC.NURSE ---
return from cardiac laundry laborer at 1200 via w/c.report received.pt is alert and oriented x 4.denies pain at present.sr on monitor.right wrist with tr band on and inflated.right hand is warm to touch and with brisk capillary refill.palpable radial pulse noted distal to tr band.no hematoma noted.pt instructed in activity restrictions s/p radial artery procedure...and instructed to notify staff for any bleeding,pain,numbness,or for any concerns at all.pt verb understanding of instructions
--- NOTE | 2022-02-21 16:47 | PC.NURSE ---
tr band slowly deflated and eventually removed at 1530.no s/sxs hematoma noted.site dressed with 2x2 gauze and secured with biocclusive drsg.discharge instructions given and explained.pt verb understanding of instructions.discharged via w/c to exit.spouse to drive pt home.
== END 2022-02-21 16:45 | disposition home or self-care (01) | DRG 282 ==
LOC: ER 15:17 → CSU 18:05
PROVIDERS: Internal Medicine; Physician Assistant; Admitting Provider Hospitalist; Emergency Provider Emergency Medicine; PCP Family Medicine; Visit Provider Student in an Organized Health Care Education/Training Program
PROC: 4A023N7 Measurement of Cardiac Sampling and Pressure, Left Heart, Percutaneous Approach (ICD-10-PCS; principal; 2022-02-21 11:00)
DX: I21.4 Non-ST elevation (NSTEMI) myocardial infarction (principal); I25.10 Atherosclerotic heart disease of native coronary artery without angina pectoris; E11.65 Type 2 diabetes mellitus with hyperglycemia; E11.42 Type 2 diabetes mellitus with diabetic polyneuropathy; I10 Essential (primary) hypertension; Z79.84 Long term (current) use of oral hypoglycemic drugs; Z79.82 Long term (current) use of aspirin; Z79.4 Long term (current) use of insulin; M79.7 Fibromyalgia; F32.A Depression, unspecified; E78.5 Hyperlipidemia, unspecified; Z87.891 Personal history of nicotine dependence; B35.1 Tinea unguium
CPT/HCPCS: 36415; 36416; 71045; 80048; 80053; 80061; 82607; 82746; 82962; 83540; 83550; 83735; 83880; 84100; 84443; 84484; 85025; 85610; 85730; 93005; 93306; 93458; 96372; 99152; C1769; C1887; C1894; J1644; J1815; J2250; J3010; J3490; Q9967

== ENCOUNTER → 2022-03-02 10:10 | Outpatient (BNVA) | payer SELFPAY | PROVIDERS: PCP Family Medicine; Visit Provider Family Medicine | DX: B35.1 Tinea unguium (principal) | CPT/HCPCS: 80053 ==

== ENCOUNTER → 2022-04-09 10:14 | Outpatient (BNVA) | payer SELFPAY | PROVIDERS: PCP Family Medicine; Visit Provider Family Medicine | DX: E11.9 Type 2 diabetes mellitus without complications (principal); Z79.4 Long term (current) use of insulin | CPT/HCPCS: 83036 ==

== ENCOUNTER → 2022-08-21 09:37 | Outpatient (BNVA) | payer OTHER, SELFPAY | PROVIDERS: PCP Family Medicine; Visit Provider Family Medicine | DX: E11.9 Type 2 diabetes mellitus without complications (principal); Z79.4 Long term (current) use of insulin; R53.83 Other fatigue | CPT/HCPCS: 80053; 80061; 82043; 83036; 84443; 85025 ==

== ENCOUNTER → 2023-01-08 09:16 | Outpatient (BNVA) | payer OTHER, SELFPAY | PROVIDERS: PCP Family Medicine; Visit Provider Family Medicine | DX: E11.9 Type 2 diabetes mellitus without complications (principal); Z79.4 Long term (current) use of insulin; E78.5 Hyperlipidemia, unspecified | CPT/HCPCS: 80053; 83036 ==

== ENCOUNTER 2023-01-16 07:45 | Outpatient (CLI) | payer OTHER, SELFPAY ==
--- NOTE | 2023-01-16 07:49 | MM_ITS ---
WS: [id number] BILATERAL SCREENING DIGITAL TOMOSYNTHESIS MAMMOGRAM WITH CAD HISTORY: Z00.00 - Encounter for general adult medical examination ... COMPARISON: 01/28/2019 and 01/01/2017 Bilateral CC and MLO views with tomosynthesis and synthetic mammography submitted. Computer aided det ection analyzed. Breast composition: There are scattered areas of fibroglandular density. No suspicious masses, microc alcifications or architectural distortion. Stable asymmetry in the upper outer quadrant of the LEFT b reast. Benign calcifications. IMPRESSION: MM/[place] [id number] BI-RADS: 2-Benign FOLLOW UP: 1 Year Follow-up
== END 2023-01-16 07:46 | disposition home or self-care (01) ==
LOC: RAD 07:46
PROVIDERS: PCP Family Medicine; Visit Provider Family Medicine
DX: Z12.31 Encounter for screening mammogram for malignant neoplasm of breast (principal)
CPT/HCPCS: 77063; 77067

== ENCOUNTER → 2023-05-08 09:12 | Outpatient (BNVA) | payer OTHER, SELFPAY | PROVIDERS: PCP Family Medicine; Visit Provider Internal Medicine | DX: E11.9 Type 2 diabetes mellitus without complications (principal); Z79.4 Long term (current) use of insulin | CPT/HCPCS: 80053; 80061; 82044; 83036 ==

== ENCOUNTER 2023-08-13 11:33 | Outpatient (CLI) | payer OTHER, SELFPAY ==
[2023-08-13 13:11] LABS: Creatinine Urine, Random 144 mg/dL (28-217); Microalbum Creatinine Ratio Ur 7 mg/dL (0-20); Microalbumin Random Urine 1 ug/dL (0-20)
[2023-08-13 13:12] LABS: Alanine Aminotransferase 23 U/L (0-33); Albumin Level 4.3 g/dL (3.5-5.2); Alkaline Phosphatase 65 U/L (35-105); Anion Gap 12.3 (5-19); Aspartate Amino Transferase 23 U/L (0-32); Blood Urea Nitrogen 18 mg/dL (8-23); Calcium 8.9 mg/dL (8.5-10.5); Carbon Dioxide 31 mmol/L (22-29); Chloride 103 mmol/L (98-107); Chol HDL Ratio 2.88 mg/dL (0.0-4.40); Cholesterol 147 mg/dL (0-200); Globulin 2.9 g/dL (1.3-4.6); Glomerular Filtration Rate 125.4 mL/min (90-130); Glucose 206 mg/dL (65-115); HDL Cholesterol 51 mg/dL (60-100); LDL Cholesterol Calculated 84 mg/dL (50-129); LDL HDL Ratio 1.65 RATIO (0.00-3.22); Osmolality Calculated 302 mOsm/kg (285-295); Potassium 4.3 mmol/L (3.5-5.1); Sodium 142 mmol/L (136-145); Total Bilirubin 0.5 mg/dL (0.15-1.2); Total Protein 7.2 g/dL (6.6-8.7); Triglycerides 60 mg/dL (0-150)
[2023-08-13 13:13] LABS: Estmated Average Glucose 235; Hemoglobin A1C 9.8 % (4.0-6.0)
[2023-08-15 00:44] LABS: C-Peptide 3.14 ng/mL (0.80-3.85)
== END 2023-08-13 11:34 | disposition home or self-care (01) ==
PROVIDERS: PCP Family Medicine; Visit Provider Internal Medicine
DX: E11.9 Type 2 diabetes mellitus without complications (principal); Z79.4 Long term (current) use of insulin; E78.5 Hyperlipidemia, unspecified
CPT/HCPCS: 36415; 80053; 80061; 82044; 83036; 84681

== ENCOUNTER → 2024-01-17 13:36 | Outpatient (BNVA) | payer OTHER, SELFPAY | PROVIDERS: PCP Family Medicine; Visit Provider Family Medicine | DX: E11.9 Type 2 diabetes mellitus without complications (principal); Z79.4 Long term (current) use of insulin | CPT/HCPCS: 80053; 83036 ==

== ENCOUNTER 2024-07-09 13:18 | Emergency (ER) | payer OTHER, SELFPAY ==
[2024-07-09 13:23] VITALS: BP 162/85; PULSE 61; RESP 15; TEMP 36.7; O2SAT 97; BMI 25.8
[2024-07-09 14:59] VITALS: BP 179/91; PULSE 57; O2SAT 96
--- NOTE | 2024-07-09 15:03 | CTR_ITS ---
PROCEDURE INFORMATION: Exam: CT Head Without Contrast Exam date and time: 07/09/2024 3:45 PM Age: 64 years old Clinical indication: Pain; Headache not specified; Additional info: Encephalopathy, altered mental status TECHNIQUE: Imaging protocol: Computed tomography of the head without contrast. Radiation optimization: All CT scans at this facility use at least one of these dose optimization techniques: automated exposure control; mA and/or kV adjustment per patient size (includes targeted exams where dose is matched to clinical indication); or iterative reconstruction. COMPARISON: CT head wo con* [id number] 05/19/2018 12:40 PM RADIATION DOSE METRICS: Total DLP (mGy-cm): 1633.12 FINDINGS: Brain: No hemorrhage. Diffuse periventricular white matter disease indicating small vessel disease changes. No mass effect. No collections. Age related volume loss. Chronic tiny lacunar infarcts noted in the left temporal lobe (subcortical white matter ) Cerebral ventricles: No ventriculomegaly. Paranasal sinuses: No significant air-fluid levels noted in the visualized sinuses. Mastoid air cells: Mastoid air cells are aerated with no effusions. Bones: No acute osseous abnormality. Soft tissues: Unremarkable. CT/CT head wo con* [id number] IMPRESSION: No acute intracranial abnormality.
--- NOTE | 2024-07-09 15:03 | CTR_ITS ---
PROCEDURE INFORMATION: Exam: CT Maxillofacial Without Contrast Exam date and time: 07/09/2024 3:45 PM Age: 64 years old Clinical indication: Pain; Headache; Type not specified; Additional info: Facial pain TECHNIQUE: Imaging protocol: Computed tomography of the face without contrast. Radiation optimization: All CT scans at this facility use at least one of these dose optimization techniques: automated exposure control; mA and/or kV adjustment per patient size (includes targeted exams where dose is matched to clinical indication); or iterative reconstruction. COMPARISON: CT head wo con* [id number] 05/19/2018 12:40 PM RADIATION DOSE METRICS: Total DLP (mGy-cm): 531.3 FINDINGS: Paranasal sinuses: No significant air-fluid levels noted in the visualized sinuses. Orbital cavities: Orbits are normal and the globes are unremarkable. Mastoid air cells: Mastoid air cells are aerated with no effusions. Bones: No acute osseous abnormality. Limited evaluation of the upper cervical spine demonstrates degenerative disease of the spine. Soft tissues: Unremarkable. CT/CT facial bones wo con* [id number] IMPRESSION: No acute findings.
--- NOTE | 2024-07-09 15:04 | XR_ITS ---
WS: [id number] Portable AP upright chest, 07/09/2024 Clinical Data: Weakness Comparison: Portable chest, 02/20/2022 Findings: No nodules, masses or effusions are seen. The heart is normal. The pulmonary vascularity is not increased. No pneumonia or pneumothorax is seen. XR/XR chest 1V portable [id number] Impression: Negative chest.
--- NOTE | 2024-07-09 15:04 | ECG_ITS ---
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 Measurements Intervals [place] Rate: 57 P: 115 VA: 158 QRS: -9 QRSD: 103 T: 79 QT: 438 QTc: 429 Interpretive Statements SINUS BRADYCARDIA NONSPECIFIC T-WAVE ABNORMALITY Compared to ECG 02/20/2022 15:56:23 T-wave abnormality now present Sinus rhythm no longer present Electronically Signed On 07-10-2024 08:44:00 CDT by Keshia Gould M.D. [email or web address]
--- NOTE | 2024-07-09 15:05 | W.ED.GENADLT ---
HPI - General Adult General: Chief complaint: General Medical Stated complaint: dizzy,blurred vision,ams,left side numbness Time Seen by Provider: 07/09/24 14:57 History of Present Illness: 64-year-old female with history of diabetes, hypertension, neuropathy, fibromyalgia, hyperlipidemia and depression who presents the emergency room with concerns for confusion and multiple other complaints. Says she has been having issues for about 2 weeks now. She has not been sleeping well. She says several times she is woke up in the [place] with her heart pounding. She is also developed some pain in her left jaw cheek area and also a headache on the left side. Her says she seems more confused than usual which is not like her. No chest pain. No focal motor deficits. No fevers. No chest pain. No abdominal pain. No vomiting. Related Data Home Medications ?Medication ?Instructions ?Recorded ?Confirmed aspirin 81 mg tablet,delayed 162 mg PO QAM 08/07/19 07/09/24 release biotin 10,000 mcg capsule 10,000 mcg PO QAM 02/20/22 07/09/24 hydrochlorothiazide 25 mg tablet 25 mg PO QAM 07/09/24 07/09/24 insulin glargine 100 unit/mL (3 50 unit SUBCUT BID 07/09/24 07/09/24 mL) subcutaneous pen (Lantus Solostar U-100 Insulin) venlafaxine 75 mg capsule,extended 75 mg PO DAILY 07/09/24 07/09/24 release 24 hr Previous Rx's ?Medication ?Instructions ?Recorded insulin aspart U-100 100 unit/mL 5 unit (0.05 mL) SUBCUT TID #15 mL 05/22/23 (3 mL) subcutaneous pen (Novolog FlexPen U-100 Insulin aspart) meloxicam 15 mg tablet 15 mg PO DAILY #90 tabs 01/17/24 liraglutide 0.6 mg/0.1 mL (18 mg/3 See Rx Instructions .Route 02/26/24 mL) subcutaneous pen injector .COMPLEX #9 mL (Victoza 3-Palmer) lisinopril 5 mg tablet 5 mg PO DAILY #60 tabs 07/02/24 atorvastatin 40 mg tablet 40 mg PO QAM #90 tabs 07/06/24 Allergies Allergy/AdvReac Type Severity Reaction Status Date / Time meperidine (From Demerol) Allergy Unknown Verified 01/17/24 13:02 Penicillins Allergy Unknown Verified 01/17/24 13:02 canagliflozin (From Invokana) AdvReac Mild vaginal Verified 01/17/24 13:02 itching Review of Systems Narrative: Constitutional symptoms: Negative except as documented in HPI. Skin symptoms: Negative except as documented in HPI. Eye symptoms: Negative except as documented in HPI. ENMT symptoms: Negative except as documented in HPI. Respiratory symptoms: Negative except as documented in HPI. Cardiovascular symptoms: Negative except as documented in HPI. Gastrointestinal symptoms: Negative except as documented in HPI. Genitourinary symptoms: Negative except as documented in HPI. Musculoskeletal symptoms: Negative except as documented in HPI. Neurologic symptoms: Negative except as documented in HPI. Psychiatric symptoms: Negative except as documented in HPI. Endocrine symptoms: Negative except as documented in HPI. PFSH ED PFSH: Medical History (Updated 07/09/24 @ 17:27 by Ivelisse Campos MD) Neck pain Atherosclerosis of coronary artery 2 Para 1 History of cardiovascular stress test 2020 exercise mibi, normal EKG response, normal low probability myocardial perfusion History of fracture of humerus right proximal Dyslipidemia History of 2019 novel coronavirus disease (COVID-19) Type 2 diabetes mellitus, with long-term current use of insulin Essential (primary) hypertension Depression Neuropathy Fibromyalgia Surgical History History of back surgery laminectomy x 2 in 1993 and 1997 H/O: hysterectomy ~2004 Family History Mother Leukemia mother from leukemia Family/Other CAD (coronary artery disease) uncle with heart disease Social History Smoking and tobacco/nicotine status: never used tobacco/nicotine Alcohol intake: never Substance/Drug Use: never Adopted: Yes Lives independently: Yes Marital status: Physical Exam Narrative: EXAM NARRATIVE: General: Alert, no acute distress. Skin: Warm, dry. Head: Normocephalic, atraumatic. Neck: Supple, trachea midline. Eye: Extraocular movements are intact. Ears, nose, mouth and throat: mucosa moist. Cardiovascular: Regular, Normal peripheral perfusion. Respiratory: Lungs are clear to auscultation, respirations are non-labored, breath sounds are equal, Symmetrical chest wall expansion. Gastrointestinal: Soft, Nontender, Non distended Musculoskeletal: Normal ROM, no deformity. Neurological: Alert and oriented, No focal neurological deficit observed. Psychiatric: Cooperative, appropriate mood & affect. Course Vital Signs: Vital signs: Vital Signs Temperature 98.1 F 07/09/24 13:23 Pulse Rate 57 L 07/09/24 17:00 Respiratory Rate 15 07/09/24 13:23 Blood Pressure 143/77 07/09/24 17:00 Pulse Oximetry 95 07/09/24 17:00 Oxygen Delivery Me thod Room Air 07/09/24 17:00 MDM - General Adult Medical Decision Making Medical decision making: Differential diagnosis including but not limited to and based on the above HPI, review of systems and physical exam: In this patient with altered mental status: Stroke. Hypoglycemia. Metabolic encephalopathy. Infections such as pneumonia, urinary tract infection, Covid-19, Influenza. Electrolyte abnormalities such as hypernatremia. Renal failure / uremia. Hepatic encephalopathy. Hypoxemia. Hypercapnic respiratory failure. Psychosis. Drug or alcohol intoxication. Medication overdose. Orders placed to evaluate differential diagnosis based on the above differential, HPI and physical exam EKG: Time 1508. Rate 57. Sinus bradycardia, nonspecific ST abnormalities, no ectopy, normal IL & QRS intervals, This was reviewed and interpreted by myself the ER physician at 1512. CT head: No acute intracranial process. no intracranial hemorrhage, no evidence of infarct. no evidence of acute fracture.This was reviewed and interpreted by myself the ER physician. Chest x-ray: No acute process. No infiltrate. No pneumothorax. This was reviewed and interpreted by myself the emergency room physician. I also reviewed the radiology report. Lab Review: Laboratory results were reviewed and interpreted by myself the emergency room physician. No leukocytosis. No anemia. No renal failure. No urinary tract infection. No flu COVID or RSV. I reviewed the patient's medical record. Reexamination: Patient remained stable. No increased work of breathing. No altered mental status. No focal motor deficits. We discussed that I had no major findings to explain her symptoms. She has a vague sort of encephalopathy. Some trouble sleeping. Possibly even some anxiety. We discussed that her primary care provider is best to pick this case up from here as they would be better equipped at looking at the finer details of this. Assessment and plan: Insomnia Headache - Discharged home - Discussed plan with patient. Answered any questions. - Evaluation and treatment of this problem were appropriate in the emergency setting. Lab Data 07/09/24 15:37 07/09/24 15:[address] 07/09/24 15:03 IMPRESSION: No acute findings. Head CT 07/09/24 15:03 IMPRESSION: No acute intracranial abnormality. Chest X-Ray 07/09/24 15:04 Impression: Negative chest. Laboratory Results WBC 3.99 10^3/uL (3.29-11.43) 07/09/24 15:37 RBC 4.12 10^6/uL (3.85-5.65) 07/09/24 15:37 Hgb 13.20 g/dL (11.27-16.99) 07/09/24 15:37 Hct 39.9 % (36-47) 07/09/24 15:37 MCV 96.8 fl (85-98) 07/09/24 15:37 MCH 32.0 pg (27-33) 07/09/24 15:37 MCHC 33.1 g/dL (30-55) 07/09/24 15:37 RDW 12.9 % (12.1-15.1) 07/09/24 15:37 Plt Count 212 10^3/cmm (157-399) 07/09/24 15:37 MPV 11.5 fL (7.4-10.4) H 07/09/24 15:37 Neut % (Auto) 43.0 % 07/09/24 15:37 Lymph % (Auto) 40.4 % 07/09/24 15:37 Edgar % (Auto) 12.3 % 07/09/24 15:37 Eos % (Auto) 3.0 % 07/09/24 15:37 Baso % (Auto) 1.3 % 07/09/24 15:37 Neut # (Auto) 1.72 10^3/uL (1.8-7.7) L 07/09/24 15:37 Lymph # (Auto) 1.6 10^3/uL (0.8-4.8) 07/09/24 15:37 Edgar # (Auto) 0.5 10^3/uL (0.2-0.9) 07/09/24 15:37 Eos # (Auto) 0.1 10^3/uL (0.0-0.8) 07/09/24 15:37 Baso # (Auto) 0.1 10^3/uL (0.0-0.1) 07/09/24 15:37 Nucleated RBC % (auto) 0 % 07/09/24 15:37 Nucleated RBCs # 0.0 /100WBC 07/09/24 15:37 Sodium 143 mmol/L (136-145) 07/09/24 15:37 Potassium 3.3 mmol/L (3.5-5.1) L 07/09/24 15:37 Chloride 101 mmol/L (98-107) 07/09/24 15:37 Carbon Dioxide 28 mmol/L (22-29) 07/09/24 15:37 Anion Gap 17.3 (5-19) 07/09/24 15:37 BUN 11 mg/dL (8-23) 07/09/24 15:37 Creatinine 0.6 mg/dL (0.5-0.9) 07/09/24 15:37 GFR Calculation 101.3 mL/min (90-130) 07/09/24 15:37 Glucose 85 mg/dL (65-115) 07/09/24 15:37 POC Glucose 89 mg/dL (70-110) 07/09/24 15:08 Calculated Osmolality 295 mOsm/kg (285-295) 07/09/24 15:37 Lactic Acid 1.3 mmol/L (0.5-2.2) 07/09/24 15:37 Calcium 9.3 mg/dL (8.5-10.5) 07/09/24 15:37 Total Bilirubin 0.8 mg/dL (0.15-1.2) 07/09/24 15:37 AST 90 U/L (0-32) H 07/09/24 15:37 ALT 227 U/L (0-33) H 07/09/24 15:37 Alkaline Phosphatase 114 U/L (35-105) H 07/09/24 15:37 Troponin T Baseline < 6 ng/L (0-10) 07/09/24 15:37 C-Reactive Protein 13.8 mg/L (0.0-4.9) H 07/09/24 15:37 Total Protein 6.9 g/dL (6.6-8.7) 07/09/24 15:37 Albumin 4.3 g/dL (3.5-5.2) 07/09/24 15:37 Globulin 2.6 g/dL (1.3-4.6) 07/09/24 15:37 Urine Color Yellow (Yellow) 07/09/24 16:14 Urine Appearance Clear (CLEAR) 07/09/24 16:14 Urine pH 7.0 (5-7) 07/09/24 16:14 Ur Specific Ideal 1.015 (1.005-1.030) 07/09/24 16:14 Urine Protein Negative (Negative) 07/09/24 16:14 Urine Glucose (UA) Negative (Normal) 07/09/24 16:14 Urine Ketones Negative (Negative) 07/09/24 16:14 Urine Blood Negative (Negative) 07/09/24 16:14 Urine Nitrate Negative (Negative) 07/09/24 16:14 Urine Bilirubin Negative (Negative) 07/09/24 16:14 Urine Urobilinogen 1.0 mg/dL (Negative) 07/09/24 16:14 Ur Leukocyte Esterase Negative (Negative) 07/09/24 16:14 Urine RBC 0-2 /hpf (0-2) 07/09/24 16:14 Urine WBC 0-5 /hpf (0-5) 07/09/24 16:14 Ur Squamous Epith Cells 0-5 /hpf (0-5) 07/09/24 16:14 Amorphous Sediment Not Reportable 07/09/24 16:14 Urine Bacteria None seen /hpf (NONE) 07/09/24 16:14 Hyaline Casts 0-4 /lpf H 07/09/24 16:14 Influenza A (PCR) Negative (Negative) 07/09/24 16:14 Influenza Type B (PCR) Negative (Negative) 07/09/24 16:14 RSV (PCR) Negative (Negative) 07/09/24 16:14 SARS-CoV-2 (PCR) Negative (Negative) 07/09/24 16:14 All radiology interpretation(s) finalized by discharge Discharge Plan Discharge Patient Disposition: Home Clinical Impression: Insomnia, Headache Condition: Stable Prescriptions: No Action aspirin 81 mg tablet,delayed release (DR/EC) 162 mg PO QAM insulin aspart U-100 [Novolog FlexPen U-100 Insulin] 100 unit/mL (3 mL) insulin pen 5 unit SUBCUT TID Qty: 15 1RF meloxicam 15 mg tablet 15 mg PO DAILY Qty: 90 1RF Victoza 3-Palmer 0.6 mg/0.1 mL (18 mg/3 mL) pen injector See Rx Instructions .ROUTE .COMPLEX Qty: 9 5RF Dose Instruction: inject 1.8mg SUBCUTANEOUSLY EVERY DAY FOR 30 DAYS Rx Instructions: inject 1.8mg SUBCUTANEOUSLY EVERY DAY lisinopril 5 mg tablet 5 mg PO DAILY Qty: 60 0RF atorvastatin 40 mg tablet 40 mg PO QAM Qty: 90 1RF biotin 10,000 mcg Capsule 10,000 mcg PO QAM insulin glargine [Lantus Solostar U-100 Insulin] 100 unit/mL (3 mL) insulin pen 50 unit SUBCUT BID venlafaxine 75 mg capsule,extended release 24hr 75 mg PO DAILY Rx Instructions: Take 1 capsule by mouth once daily in the morning hydrochlorothiazide 25 mg tablet 25 mg PO QAM Rx Instructions: TAKE 1 TABLET BY MOUTH IN THE MORNING Discharge Orders: Discharge ED (Routine); Ordered 07/09/24 Ordered By: Ivelisse Campos Referrals: Aaron Covington MD [Primary Care Provider] - 4-7 days (Please call for prompt follow-up with your primary provider.) Discharge Diet: Usual diet Discharge Activity: Increase activity as tolerated Patient Instructions: Opioid Safety, Pain Management Activity Restrictions/Additional Instructions: Thank you for choosing [facility] for your healthcare needs today. Please realize this is an emergency room and that we are providing you with a medical screening exam and this may not be complete and all inclusive of all the testing and or work up that you may need to determine your ailment or severity of your illness. You have been screened and evaluated and felt safe for discharge. Health conditions do change or evolve sometimes and as such it is important that you follow up with your Primary Doctor to be re checked, 3-5 days is a general good time frame for follow up. You are always welcome to return to the ED for re assessment if your symptoms are worsening or you have new concerns Print Language: Tongan Coding Level of Care Code ED Manager Category for Nikita Mixon
[2024-07-09 15:28] LABS: Glucose Point of Care 89 mg/dL (70-110)
[2024-07-09 15:48] LABS: Basophils # 0.1 10^3/uL (0.0-0.1); Basophils % 1.3 %; Eosinophils # 0.1 10^3/uL (0.0-0.8); Hematocrit 39.9 % (36-47); Lymphocytes # 1.6 10^3/uL (0.8-4.8); Lymphocytes % 40.4 %; Mean Corpuscular HGB Conc 33.1 g/dL (30-55); Mean Corpuscular Volume 96.8 fl (85-98); Mean Platelet Volume 11.5 fL (7.4-10.4); Monocytes # 0.5 10^3/uL (0.2-0.9); Monocytes % 12.3 %; Neutrophils # 1.72 10^3/uL (1.8-7.7); Nucleated Red Blood Cells % 0 %; Platelet Count 212 10^3/cmm (157-399); Red Blood Count 4.12 10^6/uL (3.85-5.65); Red Cell Distribution Width 12.9 % (12.1-15.1); White Blood Count 3.99 10^3/uL (3.29-11.43)
[2024-07-09 16:00] VITALS: BP 157/91; PULSE 58; O2SAT 97
[2024-07-09 16:20] LABS: Troponin(5th) Baseline < 6 ng/L (0-10)
[2024-07-09 16:21] LABS: Lactic Sepsis W/Reflex 1.3 mmol/L (0.5-2.2)
[2024-07-09 16:22] LABS: Alanine Aminotransferase 227 U/L (0-33); Albumin Level 4.3 g/dL (3.5-5.2); Alkaline Phosphatase 114 U/L (35-105); Anion Gap 17.3 (5-19); Aspartate Amino Transferase 90 U/L (0-32); Blood Urea Nitrogen 11 mg/dL (8-23); C Reactive Protein 13.8 mg/L (0.0-4.9); Calcium 9.3 mg/dL (8.5-10.5); Carbon Dioxide 28 mmol/L (22-29); Chloride 101 mmol/L (98-107); Creatinine Clr Calc Pharmacy 99.1584; Globulin 2.6 g/dL (1.3-4.6); Glomerular Filtration Rate 101.3 mL/min (90-130); Glucose 85 mg/dL (65-115); Osmolality Calculated 295 mOsm/kg (285-295); Potassium 3.3 mmol/L (3.5-5.1); Sodium 143 mmol/L (136-145); Total Bilirubin 0.8 mg/dL (0.15-1.2); Total Protein 6.9 g/dL (6.6-8.7)
[2024-07-09 16:29] LABS: Bilirubin Urine Negative (Negative); Blood Urine Negative (Negative); Glucose Urine UA Negative (Normal); Ketones Urine Negative (Negative); Leukocyte Esterase Urine Negative (Negative); Nitrate Urine Negative (Negative); Protein Urine Negative (Negative); Specific Gravity, Urine 1.015 (1.005-1.030); Urine Appearance Clear (CLEAR); Urine Color Yellow (Yellow)
[2024-07-09 16:30] VITALS: BP 160/90; PULSE 68; O2SAT 94
[2024-07-09 16:31] LABS: Bacteria Urine None Seen /hpf; Hyaline Casts Urine 0-4 /lpf; RBC Urine 0-2 /hpf (0-2); Squamous Epithelial Cell Urine 0-5 /hpf (0-5); WBC Urine 0-5 /hpf (0-5)
[2024-07-09 16:35] LABS: Add Urine Culture? No
[2024-07-09 17:00] VITALS: BP 143/77; PULSE 57; O2SAT 95
--- NOTE | 2024-07-09 17:04 | ECG_ITS ---
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 Measurements Intervals [place] Rate: 57 P: 121 AL: 166 QRS: -2 QRSD: 105 T: 83 QT: 433 QTc: 425 Interpretive Statements SINUS BRADYCARDIA NONSPECIFIC T-WAVE ABNORMALITY Compared to ECG 07/09/2024 15:08:45 No significant changes Electronically Signed On 07-10-2024 08:58:22 CDT by Keshia Gould M.D. [email or web address]
[2024-07-09 17:05] LABS: Influenza A NEGATIVE (Negative); Influenza B NEGATIVE (Negative); Respiratory Syncytial Virus Ce NEGATIVE (Negative); SARS-CoV-2 PCR NEGATIVE (Negative)
[2024-07-09 17:43] VITALS: BP 135/75; PULSE 61; O2SAT 95
== END 2024-07-09 17:44 | disposition home or self-care (01) ==
PROVIDERS: Emergency Provider Emergency Medicine; PCP Family Medicine
DX: G47.00 Insomnia, unspecified (principal); R51.9 Headache, unspecified; Z79.82 Long term (current) use of aspirin; Z79.4 Long term (current) use of insulin; Z11.52 Encounter for screening for COVID-19; E78.5 Hyperlipidemia, unspecified; E11.9 Type 2 diabetes mellitus without complications; I10 Essential (primary) hypertension
CPT/HCPCS: 36415; 36416; 70450; 70486; 71045; 80053; 81001; 82962; 83605; 84484; 85025; 86140; 87040; 87637; 93005; 99285

== ENCOUNTER → 2024-07-16 11:32 | Outpatient (BNVA) | payer SELFPAY | PROVIDERS: PCP Family Medicine; Visit Provider Family Medicine | DX: E11.9 Type 2 diabetes mellitus without complications (principal); Z79.4 Long term (current) use of insulin | CPT/HCPCS: 80053; 83036; 85651; 86140 ==

== ENCOUNTER → 2024-07-30 11:30 | Outpatient (BNVA) | payer SELFPAY | PROVIDERS: PCP Family Medicine; Referring Provider Family Medicine; Visit Provider Internal Medicine Rheumatology | DX: M25.50 Pain in unspecified joint (principal) | CPT/HCPCS: 82306; 86036; 86200; 86431; 86480; 86704; 86803; 87340 ==

== ENCOUNTER 2024-08-10 14:28 | Outpatient (CLI) | payer SELFPAY ==
[2024-08-10] MEDS: gadobenate dimeglumine 20 mL vial 16 ML IV (15:32)
--- NOTE | 2024-08-10 16:00 | MR_ITS ---
WS: [id number] MRI BRAIN WITH AND WITHOUT CONTRAST HISTORY: R51.9 - Headache, unspecified COMPARISON: CT head 07/09/2024 TECHNIQUE: Multiplanar imaging performed through the brain with MultiHance 16 ml's IV. No acute infarcts are seen. Smith-white matter differentiation is well preserved. There are a few scattered T2 and FLAIR signal hyperintensities in the subcortical white matter. No prior infarct. No hemorrhage. Mild symmetric cerebral and cerebellar atrophy. Normal hippocampal formations. Ventricles and extra-axial spaces are normal. Clivus and pituitary gland are normal. Visualized posterior fossa and brainstem are also normal. Postcontrast images are negative for masses or vascular malformations. Dural venous sinuses are normal. Paranasal sinuses: Minimal mucoperiosteal thickening RIGHT maxillary and sphenoid sinuses. No air-fluid levels. Mastoid air cells: Normal. Calvarium and scalp: Normal. MR/MR head wo/w con [id number] IMPRESSION: 1. No acute infarct, hemorrhage or enhancing mass. 2. Mild scattered T2 and FLAIR signal hyperintensities. These can be seen with small vessel disease, hypertension, migraines or smoking. 3. Mild cerebral and cerebellar atrophy. No prior infarct.
== END 2024-08-10 14:29 | disposition home or self-care (01) ==
PROVIDERS: PCP Family Medicine; Visit Provider Internal Medicine Rheumatology
DX: R51.9 Headache, unspecified (principal); R93.0 Abnormal findings on diagnostic imaging of skull and head, not elsewhere classified; G31.89 Other specified degenerative diseases of nervous system; J34.89 Other specified disorders of nose and nasal sinuses
CPT/HCPCS: 70553

== ENCOUNTER 2024-08-19 08:04 | Day surgery (SDC) | payer SELFPAY ==
[2024-08-19] VITALS (11 sets, daily range): BP systolic 121–173; BP diastolic 78–88; PULSE 63–76; RESP 10–18; TEMP 36.1–36.3; O2SAT 95–98
--- NOTE | 2024-08-19 08:41 | W.PM.OPSUD ---
Surgery/Procedure H&P Update DATE OF PROCEDURE: August 19, 2024 DATE H&P PERFORMED: 08/10/24 H&P UPDATE INFORMATION: I have reviewed H&P completed within last 30 days, I have examined patient prior to procedure and No changes to prior documentation PLANNED PROCEDURE: Operation Date: 08/19/24 11:45 Proposed Procedures p LEFT Temporal Artery Biopsy 52212 M31.6(Left) - Yaniv Sauer MD
--- NOTE | 2024-08-19 08:49 | ANES.PREANE2 ---
Pre-Anesthetic Assessment Height/Weight: Height 1.68 m Temp Pulse Resp BP Pulse Ox O2 Del Method 97 F L 69 18 121/80 98 Room Air 08/19/24 08:31 08/19/24 08:31 08/19/24 08:31 08/19/24 08:31 08/19/24 08:31 08/19/24 08:33 Operation Date: 08/19/24 11:45 Proposed Procedures p LEFT Temporal Artery Biopsy 94118 M31.6(Left) - Yaniv Sauer MD Familial anesthetic complications: None Was Beta Mack taken within 24 hours: N/A Was Clonidine taken within 24 hours: N/A Last intake: Intake Last Liquid Date 08/18/24 Last Liquid Time 23:55 Last Solid Date 08/18/24 Last Solid Time 20:00 Social No alcohol and No tobacco Exam alert, oriented x 3, clear to auscultation bilaterally and regular rate & rhythm Airway Mallampati: Class I Dentition: full Pulmonary Recent bronchitis finishing course of levaquin, today is last day, but she skipped her dose this morning. patient's symptoms much improved, lungs CTA CV/HEM Hypertension and Myocardial Infarction (told she had and [place] , but all work up negative) Metabolic Diabetes Mellitus and Hyperlipidemia Anesthetic Plan ASA status: 3 Anesthesia: MAC Risk of > 500 ml blood loss (7ml/kg in children): No Medications/Allergies Home Medications ?Medication ?Instructions ?Recorded ?Confirmed ?Last Taken ?Type aspirin 81 mg tablet,delayed 162 mg PO QAM 08/07/19 08/18/24 08/13/24 History release biotin 10,000 mcg capsule 10,000 mcg PO QAM 02/20/22 08/18/24 08/17/24 History insulin aspart U-100 100 unit/mL 5 unit (0.05 mL) SUBCUT TID #15 mL 05/22/23 08/18/24 08/17/24 Rx (3 mL) subcutaneous pen (Novolog FlexPen U-100 Insulin aspart) meloxicam 15 mg tablet 15 mg PO DAILY #90 tabs 01/17/24 08/18/24 Unknown Rx atorvastatin 40 mg tablet 40 mg PO QAM #90 tabs 07/06/24 08/18/24 08/17/24 Rx hydrochlorothiazide 25 mg tablet 25 mg PO QAM 07/09/24 08/18/24 08/17/24 History glyburide 5 mg tablet 5 mg PO DAILY #30 tabs 07/23/24 08/18/24 08/17/24 Rx hydroxyzine HCl 25 mg tablet 25 mg PO BID PRN itching #30 tabs 07/23/24 08/18/24 08/16/24 Rx venlafaxine 75 mg capsule,extended 75 mg PO DAILY #90 caps 08/10/24 08/18/24 08/17/24 Rx release 24 hr albuterol sulfate 90 mcg/actuation 2 puff inhalation Q6H PRN 08/13/24 08/18/24 08/17/24 Rx aerosol inhaler shortness of breath or wheezing #8.5 grams [id number]-[id number] 5 ml PO Q6H PRN cold symptoms #118 08/13/24 08/18/24 08/18/24 Rx 2 mg-30 mg-10 mg/5 mL oral syrup mL (Bromfed DM) insulin glargine 100 unit/mL (3 40 unit (0.4 mL) SUBCUT BID #15 mL 08/13/24 08/18/24 08/17/24 Rx mL) subcutaneous pen (Lantus Solostar U-100 Insulin) levofloxacin 750 mg tablet 750 mg PO DAILY 7 days #7 tabs 08/13/24 08/18/24 08/17/24 Rx lisinopril 5 mg tablet 5 mg PO DAILY 08/18/24 08/18/24 08/17/24 History omeprazole 40 mg capsule,delayed 40 mg PO DAILY 08/18/24 08/18/24 Unknown History release prednisone 10 mg tablet 40 mg PO DAILY 08/18/24 08/18/24 08/17/24 History Allergies Allergy/AdvReac Type Severity Reaction Status Date / Time meperidine (From Demerol) Allergy ALGY-Hives Verified 08/18/24 10:59 Penicillins Allergy ALGY-Redness Verified 08/18/24 10:59 of Skin canagliflozin (From Invokana) AdvReac Mild vaginal Verified 08/13/24 14:43 itching PFSH Anesthesia Medical History Diabetes mellitus type 2, uncontrolled Immunization counseling High risk medication use Neck pain Atherosclerosis of coronary artery 2 Para 1 History of cardiovascular stress test 2019 exercise mibi, normal EKG response, normal low probability myocardial perfusion History of fracture of humerus right proximal Dyslipidemia History of 2019 novel coronavirus disease (COVID-19) Type 2 diabetes mellitus, with long-term current use of insulin Essential (primary) hypertension Depression Neuropathy Fibromyalgia Surgical History History of back surgery laminectomy x 2 in 1993 and 1997 H/O: hysterectomy ~2004 Family History Mother Leukemia mother from leukemia Family/Other CAD (coronary artery disease) uncle with heart disease Social History Smoking and tobacco/nicotine status: former use of tobacco/nicotine Alcohol intake: never Substance/Drug Use: never Adopted: Yes Lives independently: Yes Marital status: Data Anesthesia Cardiac Studies: Echocardiogram 02/20/22 Sestamibi Stress Test (Cardiology) 10/06/19 Cardiac Event Monitor 03/01/22
[2024-08-19] MEDS: vancomycin 2,000 MG/400 ML PIGGYBACK 200 MG IV (09:00)
[2024-08-19 09:32] LABS: Glucose Point of Care 122 mg/dL (70-110)
--- NOTE | 2024-08-19 09:40 | P.OP_ITS ---
Operative Report Date of procedure: August 19, 2024 Pre-op diagnosis: Giant cell temporal arteritis Post-op diagnosis: same Post-op findings: Normal frontal branch of left superficial temporal artery. Identified using intraoperative duplex and doppler US. Sent a 5mm segment of frontal branch of superficial temporal artery to pathology. Procedure done: Temporal artery biopsy Implants: NA Specimens removed/disposition: Sent a 5mm segment of frontal branch of superficial temporal artery to pathology. Pathology: Sent a 5mm segment of frontal branch of superficial temporal artery to pathology. Surgeon: Yaniv Sauer MD Practice Coordinator: LEÓN Anesthesia: MAC Estimated blood loss (mL): 5 Complications: NA Findings: Normal frontal branch of left superficial temporal artery. Identified using intraoperative duplex and doppler US. Sent a 5mm segment of frontal branch of superficial temporal artery to pathology. Brief History: 64-year-old female who presented for temporal artery biopsy. Rheumatology concerned about giant cell arteritis. Discussed risk and benefits and patient agreed to proceed with temporal artery biopsy. Procedure: Consent obtained in preop area. Patient transferred to the OR. SCDs on and working. Prophylactic antibiotics administered. MAC induced. Superficial temporal artery visualized using duplex ultrasound. A small branch of the frontal superficial temporal artery was identified. The area was marked. Hair was clipped. Scalp was prepped in the usual sterile fashion. An incision over the artery was carried out using a scalpel. Subcutaneous tissues were dissected using electrocautery. The artery was visualized. Presence of the artery was confirmed using intraoperative Doppler. Using tenotomy scissors the artery was dissected off soft tissues. The artery was grossly normal. The artery was ligated proximally and distally using 4-0 silk ties. A 5mm portion of left frontal branch of superficial temporal artery was sent to pathology. The silk ties were ovewsewed with 5-0 prolene. Adequate hemostasis was achieved. Deep dermal layer was closed using 3-0 vicryl. Skin was closed using subcuticular 4-0 monocryl. Surgical glue was applied. Sterile dressing was applied. The patient woke up from anesthesia without any complications.
[2024-08-19] MEDS: oxyCODONE 5 mg IR Tab/Cap PO (10:32)
[2024-08-19] MEDS: sodium chloride 0.9% 1,000 ML 30 ML IV (10:41)
--- NOTE | 2024-08-19 11:10 | ANE.PACU2 ---
Inpatient post-anesthesia follow up: Airway intact: Yes Vital signs: Temperature 97.3 F Pulse Rate 68 Respiratory Rate 18 Blood Pressure 156/78 Pulse Oximetry 98 Oxygen Delivery Me thod Room Air Oxygen Flow Rate Fraction of Inspir ed Oxygen Hydration adequate: Yes Nausea and vomiting: No Pain level: 1 Mental status: Baseline
== END 2024-08-19 11:11 | disposition home or self-care (01) ==
PROVIDERS: PCP Family Medicine; Visit Provider Student in an Organized Health Care Education/Training Program
PROC: (CPT 37609; principal; 2024-08-19 11:45)
DX: M31.6 Other giant cell arteritis (principal); I10 Essential (primary) hypertension; E11.9 Type 2 diabetes mellitus without complications; E78.5 Hyperlipidemia, unspecified; Z79.82 Long term (current) use of aspirin; Z79.4 Long term (current) use of insulin; K21.9 Gastro-esophageal reflux disease without esophagitis; Z87.891 Personal history of nicotine dependence; M79.7 Fibromyalgia
CPT/HCPCS: 37609; 36416; 82962; 88313; 88342; A4216; J1100; J1720; J2405; J2704; J3010; J3372; J3490; J7030; J9999

== ENCOUNTER 2024-09-07 15:12 | Outpatient (CLI) | payer OTHER, SELFPAY ==
--- NOTE | 2024-09-07 15:15 | USCV_ITS ---
Kathie Angel Age: 64 Gender: F : 1960 Exam Date: 09/07/2024 15:30 Ordering Phys: Jorge Luis Goss MD Technologist: [employer] [place] [facility] [place]: [place] Risk Factors: Previous Vascular Surgery: Right Brachial BP: / Left Brachial BP: / Right Left Velocity (cm/s) Spectral Plaque Velocity (cm/s) Spectral Plaque Syst/Diast Broadening Syst/Diast Broadening 65.90/ 10.20 Prox CCA 51.80 / 16.40 50.40/ 14.10 Mid CCA 47.50 / 12.60 49.10/ 10.20 Distal CCA 45.10 / 14.30 24.60/ 9.90 Prox ICA 36.20 / 10.70 39.80/ 17.50 Mid ICA 34.80 / 12.10 39.20/ 18.10 Distal ICA 45.70 / 21.60 42.50 ECA 55.20 0.50 ICA/CCA 0.80 Antegrade Vertebral Antegrade 14.50/ 4.00 cm/s 29.40/ 11.00 cm/s Tri Subclavian Tri 43.90 76.20 CONCLUSIONS Right ICA stenosis <50%. Mild atheromatous plaque right carotid bulb/ICA. Left ICA stenosis <50%. Mild atheromatous plaque left carotid bulb/ICA. Normal antegrade Doppler flow noted in the right vertebral artery. Normal antegrade Doppler flow noted in the left vertebral artery. Pa Godwin MD (Electronically Signed) Final Date: 07 September 2024 16:26 S
== END 2024-09-07 15:13 | disposition home or self-care (01) ==
LOC: RAD 15:13
PROVIDERS: PCP Family Medicine; Visit Provider Internal Medicine Rheumatology
DX: I65.23 Occlusion and stenosis of bilateral carotid arteries (principal)
CPT/HCPCS: 93880

== ENCOUNTER → 2024-10-13 12:32 | Outpatient (BNVA) | payer SELFPAY | PROVIDERS: PCP Family Medicine; Visit Provider Internal Medicine Rheumatology | DX: M31.6 Other giant cell arteritis (principal); Z79.899 Other long term (current) drug therapy | CPT/HCPCS: 36415; 80076; 82565; 85025; 85651; 86140 ==

== ENCOUNTER → 2024-11-25 11:04 | Outpatient (BNVA) | payer OTHER, SELFPAY | PROVIDERS: PCP Family Medicine; Visit Provider Family Medicine | DX: E11.9 Type 2 diabetes mellitus without complications (principal); Z79.4 Long term (current) use of insulin; Z79.899 Other long term (current) drug therapy | CPT/HCPCS: 80076; 82565; 83036; 85025; 85651; 86140 ==

== ENCOUNTER 2024-11-27 14:12 | Outpatient (CLI) | payer OTHER, SELFPAY ==
--- NOTE | 2024-11-27 14:30 | MRR_ITS ---
PROCEDURE INFORMATION: Exam: MR Abdomen Without Contrast Exam date and time: 11/27/2024 2:39 PM Age: 64 years old Clinical indication: Abdominal pain; Generalized; Prior surgery; Surgery date: 6+ months; Surgery type: L spine; Possible giant cell arteritis. Patient states her pain started about 3 months ago in her left elbow and lasted about 1 month then she started having jaw pain that was very severe. She also reports headaches on left side of her head. She's reported ringing in her right ear and an instance of hearing loss in her left ear. Patient also reports vision changes and felt like she is crossing her eyes. She reports trouble walking and tendernes in her left hip. Patient states she does not sleep well at night and is exhausted regularly. Patient reports she was given prednisone at a previous doctors appt and noticed some improvement. ; Additional info: R07.9 - chest pain, unspecified, gca, chest pain, cad, SOB TECHNIQUE: Imaging protocol: Magnetic resonance imaging of the abdomen without contrast. COMPARISON: CR XR chest 1V portable [id number] 07/09/2024 3:16 PM FINDINGS: Limitations: Limited imaging includes axial T2 and T1 inphase/opposed phase images and coronal T2. Liver: The liver is unremarkable. Gallbladder and biliary ducts: The gallbladder is normal. There is no biliary dilation. Pancreas: The pancreas is unremarkable. Spleen: The spleen is unremarkable. Adrenal glands: The adrenal glands are unremarkable. Kidneys: Kidneys are unremarkable. No hydronephrosis or proximal ureteral dilation. No visible stones. Stomach and bowel: The stomach and visible portions of bowel are unremarkable. Intraperitoneal space: No ascites. Vasculature: The aorta is unremarkable. Lymph nodes: No visible lymphadenopathy. Bones/joints: Visible bones are unremarkable. Soft tissues: The visible portion of the abdominal wall is intact. MR/MR abdomen wo con [id number] IMPRESSION: No pathologic findings.
--- NOTE | 2024-11-27 14:36 | XR_ITS ---
WS: [id number] Lumbar spine, 3 views, 11/27/2024 Clinical Data: M54.50 - Low back pain, unspecified Comparison: None. Findings: No compression fractures or subluxation is seen. There is degenerative disc narrowing at L3-L4, L4-L5 and L5-S1. There are osteophytes at all the lumbar vertebral bodies. The transverse processes and SI joints are normal. There is calcification of the wall of the abdominal aorta but no aneurysm. XR/XR lumbar spine 2-3V* [id number] Impression: 1. Degenerative disc narrowing from L3-L4 to L5-S1. 2. Osteoarthritis of all the lumbar vertebral bodies.
== END 2024-11-27 14:13 | disposition home or self-care (01) ==
PROVIDERS: PCP Family Medicine; Visit Provider Internal Medicine Rheumatology
DX: M54.50 Low back pain, unspecified (principal); R07.9 Chest pain, unspecified; I25.10 Atherosclerotic heart disease of native coronary artery without angina pectoris; R06.02 Shortness of breath; M48.061 Spinal stenosis, lumbar region without neurogenic claudication; M48.08 Spinal stenosis, sacral and sacrococcygeal region; M25.78 Osteophyte, vertebrae
CPT/HCPCS: 72100; 74181

== ENCOUNTER 2024-11-30 18:16 | Emergency (ER) | payer OTHER, SELFPAY ==
--- OUTSIDE RECORDS SUMMARY | 2024-11-30 18:21 | XMS_ITS | Patient Health Record ---
Author Organization [facility] Address [address] [place] [address] Care Team Providers Care Strip Cutter Name Role Phone Derek Vela Unavailable [phone] Allergies Allergen (clinical drug ingredient) Drug/Non Drug Allergy documented on EMR Reaction Allergy Type Onset Date Status bupropion Bupropion HCl depression Drug Allergy Ac tive meperidine Demerol Unknown Drug Allergy Active Substance with penicillin structure and antibacterial mechanism of action (substance) Penicillins Unknown Drug Allergy Active Reason For Referral No Information Medications Medication SIG (Take, Route, Frequency, Duration) Notes Start Date End Date Status Aspirin 81 MG Tablet Chewable 1 tab(s) po qd Oral; Duration: 30 Aspirin (ASA) 81mg Chewable Tablet 1 tab(s) po qd 07/03/2012 Active Zocor 10 mg Tablet Take 1 tablet(s) by mouth at bedtime Oral; Duration: 30 Zocor (Simvastatin) 10mg Tablet Take 1 tablet(s) by mouth at bedtime #30 (Thirty) tablet(s) 09/07/2013 Active metFORMIN HCl 500 MG Tablet 2 tab po bid Oral; Duration: 30 Metformin HCl 500mg Tablet 2 tab po bid #120 (One [place] and Twenty) tablet(s) 09/07/2013 Active Victoza 0.6 mg/0.1 mL (18 mg/3 mL) pen injector Inject 1.8mg SC once daily.; Duration: 30 *please review for potential update for e-prescription and drug interaction check* Victoza (Liraglutide) 18mg/3ml Injection Inject 1.8mg SC once daily. #1 (One) prefilled pen 09/07/2013 Active DILTIAZEM 24HR ER 120 mg Capsule Extended Release 24 Hour Take 1 capsule(s) by mouth daily Oral; Duration: 30 *please review for potential update for e-prescription and drug interaction check* Diltiazem HCl 120mg Capsules, Extended Release Take 1 capsule(s) by mouth daily #30 (Thirty) capsule(s) 09/11/2013 Active Social History Social History Additional Details Category Social Info Options Details zzMigrated Social History Migrated Social History Advance Directive: Current and Verified Signed on 07/03/2012 Organ Donation: Patient refuses Organ Donation Occupation: Education - Grade 12, Some College Problems Problem Type SNOMED Code ICD Code Onset Dates Problem Status W/U Status Risk Notes Problem Blurring of visual image (796106168) Blurred vision (368.8) 019 Active confirmed [id number]- Problem Anxiety depression (588095884) Anxiety with depression (300.4) 013 Active confirmed [id number] 911- Problem Essential hypertension (13456812) Essential hypertension (401.1) Active confirmed [id number] 911- Problem Type II diabetes mellitus without complication (223066974) NIDDM (250.00) 013 Active confirmed [id number] 911- Problem Acute sinusitis (96924339) Acute sinusitis, unspecified (461.9) 017 Problem resolved confirmed [id number] 911- Problem Acute pharyngitis (680785409) Acute pharyngitis (462) 018 Problem resolved confirmed [id number] 911- Problem Celiac disease (984091249) Celiac disease (579.0) 018 Problem resolved confirmed [id number] 911- Problem Headache (64936301) Headache (784.0) 017 Problem resolved confirmed [id number] 911- Problem Cough (43183876) Cough (786.2) 014 Problem resolved confirmed [id number] 911- Problem Fibromyalgia (277927898) Fibromyalgia (729.1) 016 Problem resolved confirmed [id number] 911- Problem Fatigue (38372909) Fatigue (780.79) 10/29 017 Problem resolved confirmed [id number] 911- Problem Menopausal syndrome (317008845) Menopausal syndrome (627.2) 018 Problem resolved confirmed [id number] 911- Problem Shoulder pain (40438989) Shoulder pain (719.41) 013 Problem resolved confirmed [id number] 911- Problem Abnormal clinica l findings, NEC (796.4) 016 Problem resolved confirmed [id number] 911- Problem Acute sinusitis (95416630) Acute sinusitis (461.9) 018 Problem resolved confirmed [id number] 911- Problem Disorder of hematopoietic system (74142564) Other abnormal findings on blood examination (790.99) 018 Problem resolved confirmed [id number] 911- Problem Acute exacerbation of chronic obstructive airways disease (016623517) Acute exacerbation of chronic obstructive pulmonary disease (COPD) (491.21) 018 Problem resolved confirmed [id number] 911- Problem Chest pain (26483378) Chest pain (786.51) 019 Problem resolved confirmed [id number] 911- Problem Dyspepsia (037717062) Dyspepsia (536.8) 017 Problem resolved confirmed [id number]-[id number] 911- Problem Insomnia (232787156) Insomnia (307.41) 013 Problem resolved confirmed Enrike-985 911- Problem Pain in limb (35272926) Leg pain (729.5) 016 Problem resolved confirmed [id number]-[id number] 911- Problem Screening for malignant neoplasm of colon (891661379) Screening for colorectal cancer (V76.49) 013 Problem resolved confirmed [id number]-[id number] 911- Problem Tobacco user (055250664) Tobacco abuse affecting health (305.1) 014 Problem resolved confirmed Enrike-985 911- Problem Headache (60084367) Cephalagia (784.0) 016 Problem resolved confirmed [id number]-[id number] 911- Problem Ventricular premature complex (disorder) (548025223) PVCs (427.69) 018 Problem resolved confirmed [id number]-[id number] 911- Problem Central obesity (827736692) Central obesity (278.1) 014 Problem resolved confirmed Enrike-985 911- Problem Hyperlipidemia (45475351) Familial hyperlipidemia (272.4) 013 Problem resolved confirmed Enrike-985 911- Problem Folliculitis (37252797) Folliculitis (704.8) 014 Problem resolved confirmed Enrike-985 911- Problem 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) 016 Problem resolved confirmed Enrike-985 911- Problem Well female adult (268852757) Well woman exam (V72.31) 015 Problem resolved confirmed Enrike-985 911- Plan Of Treatment No Information Insurance Providers Payer Name Payer Address Payer Phone Subscriber Number Group Number Insured Name Patient Relationship to Insured Coverage Start Date Coverage End Date [employer] [address] [facility] [place] [phone] [id number] Kathie Angel Self - patient is the insured 7 9 Medical (General) History Surgical History Surgery Date(Month/Year) Dilation and Curettage: 2004 ; Hysterectomy: 2008; Back - 1997 and 2003;
[2024-11-30 18:29] VITALS: BP 143/81; PULSE 74; TEMP 37; O2SAT 98
--- NOTE | 2024-11-30 18:34 | ECG_ITS ---
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 Measurements Intervals [place] Rate: 77 P: 52 NV: 177 QRS: -12 QRSD: 95 T: 33 QT: 371 QTc: 421 Interpretive Statements SINUS RHYTHM LOW QRS VOLTAGE IN PRECORDIAL LEADS [QRS DEFLECTION < 1.0 mV IN CHEST LEADS] POSSIBLE ANTERIOR MYOCARDIAL INFARCTION , PROBABLY OLD [30 ms Q WAVE IN V3/V4, OR R < 0.2 mV IN V4] INTERPRETATION BASED ON A DEFAULT AGE OF 40 YEARS Compared to ECG 07/09/2024 17:00:09 Low QRS voltage now present Myocardial infarct finding now present Sinus bradycardia no longer present T-wave abnormality no longer present Electronically Signed On 12-02-2024 20:55:43 CDT by Oni Holt M.D. [id number]
--- NOTE | 2024-11-30 19:06 | XRR_ITS ---
PROCEDURE INFORMATION: Exam: XR Chest Exam date and time: 11/30/2024 7:24 PM Age: 64 years old Clinical indication: Pain; Chest pressure; Additional info: Chest pain TECHNIQUE: Imaging protocol: Radiologic exam of the chest. 4 image(s) are submitted. Views: 1 view. COMPARISON: CR XR chest 1V portable [id number] 07/09/2024 3:16 PM FINDINGS: Lungs: linear subtle atelectasis or scarring in the left lung base, slightly more prominent as compared to the prior study, likely due to slight lower bilateral lung volumes since prior study. Otherwise unremarkable study of the chest. Pleural spaces: Unremarkable. No pleural effusion. No pneumothorax. Heart/Mediastinum: Unremarkable. No cardiomegaly. Bones/joints: Unremarkable. XR/XR chest 1V portable [id number] IMPRESSION: Linear subtle atelectasis or scarring in the left lung base, slightly more prominent as compared to the prior study, likely due to slight lower bilateral lung volumes since prior study. Otherwise unremarkable study of the chest.
[2024-11-30 19:35] LABS: Hematocrit 42.1 % (36-47); Hemoglobin 14.20 g/dL (11.27-16.99); Mean Corpuscular HGB Conc 33.7 g/dL (30-55); Mean Corpuscular Hemoglobin 31.4 pg (27-33); Mean Corpuscular Volume 93.1 fl (85-98); Nucleated Red Blood Cells % 0 %; Platelet Count 196 10^3/cmm (157-399); Red Blood Count 4.52 10^6/uL (3.85-5.65); White Blood Count 3.65 10^3/uL (3.29-11.43)
[2024-11-30 19:52] LABS: Troponin(5th) Baseline 11 ng/L (0-10)
[2024-11-30 19:53] LABS: Lactic Sepsis W/Reflex 1.3 mmol/L (0.5-2.2)
[2024-11-30 19:55] VITALS: BP 181/101; PULSE 76; RESP 17; O2SAT 92
--- NOTE | 2024-11-30 20:04 | ED_ITS ---
HPI - SOB/Dyspnea 2 General: Chief Complaint: Shortness of Breath/Dyspnea Stated Complaint: SOB Time Seen by Provider: 11/30/24 19:06 Source: patient Mode of arrival: ambulatory Limitations: no limitations History of Present Illness: HPI Narrative: 64-year-old female states that over the last few days she has not been feeling well. She has been having some headaches along with some shortness of breath and fatigue. States she has had some nausea as well. She has had some mild chest pains she denies any chest pain currently she denies any worse improving factors. Associated symptoms: Reports chest pain; Deny abdominal pain, fever(s), nausea or vomiting Related Data Home Medications ?Medication ?Instructions ?Recorded ?Confirmed aspirin 81 mg tablet,delayed 162 mg PO QAM 08/07/19 release biotin 10,000 mcg capsule 10,000 mcg PO QAM 02/20/22 0 11/25/24 omeprazole 40 mg capsule,delayed 40 mg PO DAILY 11/25/24 release Previous Rx's ?Medication ?Instructions ?Recorded insulin aspart U-100 100 unit/mL 5 unit (0.05 mL) SUBC UT TID #15 mL 05/22/23 (3 mL) subcutaneous pen (Novolog FlexPen U-100 Insulin aspart) meloxicam 15 mg tablet 15 mg PO DAILY #90 tabs 12/24 08/15 Held on 08/31/24. Instructions: Doctor's Order atorvastatin 40 mg tablet 40 mg PO QAM #90 tabs hydroxyzine HCl 25 mg tablet 25 mg PO BID PRN itching #30 tabs 07/23/24 albuterol sulfate 90 mcg/actuation 2 puff inhalation Q 6H PRN 08/13/24 aerosol inhaler shortness of breath or wheez ing #8.5 grams gabapentin 300 mg capsule 300 mg PO BID #30 caps 08/26 benazepril 5 mg tablet 5 mg PO DAILY #90 tabs 08/27 hydrochlorothiazide 25 mg tablet 25 mg PO QAM #90 tabs 09/14/24 tramadol 50 mg tablet 50 mg PO TID PRN take for mo derate 10/13/24 to severe pain PRN #30 tabs venlafaxine 75 mg capsule,extended 75 mg PO DAILY #90 caps 11/05/24 release 24 hr glyburide 5 mg tablet 5 mg PO DAILY #30 tabs 11/13 insulin glargine 100 unit/mL (3 36 unit (0.36 mL) SUBC UT BID #3 mL 11/18/24 mL) subcutaneous pen (Lantus Solostar U-100 Insulin) trazodone 50 mg tablet 50 mg PO DAILY #30 tabs 05/19 tocilizumab 162 mg/0.9 mL 162 mg (0.9 mL) SUBCUT Q14D #1.8 mL 11/26/24 subcutaneous pen injector (Actemra ACTPen) Allergies Allergy/AdvReac Type Severity Reaction Status Date / Time meperidine (From Demerol) Allergy ALGY-Hives Verified 11/30/24 18:39 Penicillins Allergy ALGY-Redness Verified 11/30/24 18:39 of Skin canagliflozin (From Invokana) AdvReac Mild vaginal Verified 11/30/24 18:39 itching Review of Systems 2 Const: Reports: fatigue; Denies: fever(s), chills, body aches or change in appetite ENMT: Denies: throat pain or dental pain Card: Reports: chest pain Resp: Reports: dyspnea GI: Denies: abdominal pain, nausea, vomiting or diarrhea Musc: Denies: neck pain or back pain Skin/Breast: Denies: rash Neuro: Reports: headache(s) PFSH ED 2 PFSH: Medical History Diabetes mellitus type 2, uncontrolled Immunization counseling High risk medication use Neck pain Atherosclerosis of coronary artery 2 Para 1 History of cardiovascular stress test 2019 exercise mibi, normal EKG response, normal low probability myocardial perfusion History of fracture of humerus right proximal Dyslipidemia History of 2019 novel coronavirus disease (COVID-19) Type 2 diabetes mellitus, with long-term current use of insulin Essential (primary) hypertension Depression Neuropathy Fibromyalgia Surgical History History of back surgery laminectomy x 2 in 1993 and 1997 H/O: hysterectomy ~2005 Family History Mother Leukemia mother from leukemia Family/Other CAD (coronary artery disease) uncle with heart disease Social History Smoking and tobacco/nicotine status: former use of tobacco/nicotine Alcohol intake: never Substance/Drug Use: never Adopted: Yes Lives independently: Yes Marital status: Physical Exam 2 Const: COMMON NORMALS: no acute distress, patient oriented x3 and healthy appearing HENMT: COMMON NORMALS: normocephalic and atraumatic HEAD & SCALP: n ormocephalic and atraumatic Eye: COMMON NORMALS: conjunctivae normal CONJUNCTIVA: Yes conjunctivae normal Neck/C-Spine: COMMON NORMALS: full ROM and supple Chest: COMMONS NORMALS: normal inspection of the chest and normal palpation of entire chest wall Resp: COMMON NORMALS: normal respiratory effort, No retractions, No use of accessory muscles and clear to auscultation bilaterally AUSCULTATION: clear to auscultation bilaterally Cardio: COMMON NORMALS: regular rate, regular rhythm and No murmurs present (Cardio) RATE: regular rate RHYTHM: regular rhythm GI: COMMON NORMALS: Normal to inspection, nondistended, normoactive bowel sounds present, Soft to palpation, non-tender and no masses PALPATION: Yes Soft to palpation Extremity: COMMON NORMALS: normal to inspection and full ROM Neuro: COMMON NORMALS: patient oriented x3, moves all extremities and no focal motor deficits Psych: COMMON NORMALS: mental status grossly normal, Normal thought process present and cooperative THOUGHT PROCESS: Normal thought process present Skin: COMMON NORMALS: no rashes or lesions noted and no wounds GENERAL SKIN EXAM: no rashes or lesions noted Course 2 Vital Signs: Vital signs: Vital Signs Temperature 98.6 F 11/30/24 18:29 Pulse Rate 73 11/30/24 23:19 Respiratory Rate 17 11/30/24 23:19 Blood Pressure 143/80 11/30/24 23:19 Pulse Oximetry 95 11/30/24 23:19 Oxygen Delivery Me thod Room Air 11/30/24 19:55 MDM - SOB/Dyspnea Medical Decision Making Patient presents here with shortness of breath along with some generalized weakness she has been well-appearing here blood works normal initial repeat troponin is normal no signs of acute coronary syndrome she has no signs pneumonia no signs of pulmonary embolism she is stable for discharge she has follow-up with PCP return if worsening she understands agrees to plan. Medical Records I reviewed the patient's medical records. Lab Data I reviewed the patient's lab results. 11/30/24 19:20 11/30/24 19:20 Labs/Radiology: Radiology Impressions Chest X-Ray 11/30/24 19:06 IMPRESSION: Linear subtle atelectasis or scarring in the left lung base, slightly more prominent as compared to the prior study, likely due to slight lower bilateral lung volumes since prior study. Otherwise unremarkable study of the chest. Head CT 11/30/24 21:31 IMPRESSION: No acute intracranial abnormality. Laboratory Results WBC 3.65 10^3/uL (3.29-11.43) 11/30/24 19:20 RBC 4.52 10^6/uL (3.85-5.65) 11/30/24 19:20 Hgb 14.20 g/dL (11.27-16.99) 11/30/24 19:20 Hct 42.1 % (36-47) 11/30/24 19:20 MCV 93.1 fl (85-98) 11/30/24 19:20 MCH 31.4 pg (27-33) 11/30/24 19:20 MCHC 33.7 g/dL (30-55) 11/30/24 19:20 RDW 13.0 % (12.1-15.1) 11/30/24 19:20 Plt Count 196 10^3/cmm (157-399) 11/30/24 19:20 MPV 11.5 fL (7.4-10.4) H 11/30/24 19:20 Neut % (Auto) 31.5 % 11/30/24 19:20 Lymph % (Auto) 50.7 % 11/30/24 19:20 [place] % (Auto) 14.2 % 11/30/24 19:20 Eos % (Auto) 2.5 % 11/30/24 19:20 Baso % (Auto) 1.1 % 11/30/24 19:20 Neut # (Auto) 1.15 10^3/uL (1.8-7.7) L 11/30/24 19:20 Lymph # (Auto) 1.9 10^3/uL (0.8-4.8) 11/30/24 19:20 [place] # (Auto) 0.5 10^3/uL (0.2-0.9) 11/30/24 19:20 Eos # (Auto) 0.1 10^3/uL (0.0-0.8) 11/30/24 19:20 Baso # (Auto) 0.0 10^3/uL (0.0-0.1) 11/30/24 19:20 Nucleated RBC % (auto) 0 % 11/30/24 19:20 Nucleated RBCs # 0.0 /100WBC 11/30/24 19:20 Sodium 140 mmol/L (136-145) 11/30/24 19:20 Potassium 3.5 mmol/L (3.5-5.1) 11/30/24 19:20 Chloride 103 mmol/L (98-107) 11/30/24 19:20 Carbon Dioxide 30 mmol/L (22-29) H 11/30/24 19:20 Anion Gap 10.5 (5-19) 11/30/24 19:20 BUN 7 mg/dL (8-23) L 11/30/24 19:20 Creatinine 0.6 mg/dL (0.5-0.9) 11/30/24 19:20 GFR Calculation 101.3 mL/min (90-130) 11/30/24 19:20 Glucose 74 mg/dL (65-115) 11/30/24 19:20 POC Glucose 64 mg/dL (70-110) L 11/30/24 22:21 Calculated Osmolality 287 mOsm/kg (285-295) 11/30/24 19:20 Lactic Acid 1.3 mmol/L (0.5-2.2) 11/30/24 19:20 Calcium 9.1 mg/dL (8.5-10.5) 11/30/24 19:20 Total Bilirubin 0.7 mg/dL (0.15-1.2) 11/30/24 19:20 AST 45 U/L (0-32) H 11/30/24 19:20 ALT 41 U/L (0-33) H 11/30/24 19:20 Alkaline Phosphatase 46 U/L (35-105) 11/30/24 19:20 Troponin T Baseline 11 ng/L (0-10) H 11/30/24 19:20 Troponin T 120 Minute 10.52 ng/L (0-10) H 11/30/24 21:10 Delta Troponin T -0.48 ABS# (0-10) L 11/30/24 21:10 NT-Pro-B Natriuret Pep 82 pg/mL (0-125) 11/30/24 19:20 Total Protein 6.0 g/dL (6.6-8.7) L 11/30/24 19:20 Albumin 4.1 g/dL (3.5-5.2) 11/30/24 19:20 Globulin 1.9 g/dL (1.3-4.6) 11/30/24 19:20 Lipase 28 U/L (13-60) 11/30/24 19:20 TSH 1.52 uIU/mL (0.27-4.20) 11/30/24 19:20 Urine Color Yellow (Yellow) 11/30/24 21:22 Urine Appearance Clear (CLEAR) 11/30/24 21:22 Urine pH 8.0 (5-7) A 11/30/24 21:22 Ur Specific [place] 1.017 (1.005-1.030) 11/30/24 21:22 Urine Protein Negative (Negative) 11/30/24 21:22 Urine Glucose (UA) Negative (Normal) 11/30/24 21:22 Urine Ketones Negative (Negative) 11/30/24 21:22 Urine Blood Negative (Negative) 11/30/24 21:22 Urine Nitrate Negative (Negative) 11/30/24 21:22 Urine Bilirubin Negative (Negative) 11/30/24 21:22 Urine Urobilinogen 1.0 mg/dL (Negative) 11/30/24 21:22 Ur Leukocyte Esterase Negative (Negative) 11/30/24 21:22 Urine RBC 0-2 /hpf (0-2) 11/30/24 21:22 Urine WBC 0-5 /hpf (0-5) 11/30/24 21:22 Ur Squamous Epith Cells 0-5 /hpf (0-5) 11/30/24 21:22 Amorphous Sediment Not Reportable 11/30/24 21:22 Urine Bacteria None seen /hpf (NONE) 11/30/24 21:22 Hyaline Casts 0.40 /lpf 11/30/24 21:22 Influenza A (PCR) Negative (Negative) 11/30/24 20:50 Influenza Type B (PCR) Negative (Negative) 11/30/24 20:50 RSV (PCR) Negative (Negative) 11/30/24 20:50 SARS-CoV-2 (PCR) Negative (Negative) 11/30/24 20:50 All radiology interpretation(s) finalized by discharge EKG Data EKG 1: I personally reviewed and interpreted this EKG as follows: EKG Interpretation Date: 11/30/24 EKG interpretation time: 18:34 Interpretation: nsr hr [address] elevation qrs 95 qtc 403 Discharge Plan Discharge Patient Disposition: Home Clinical Impression: Shortness of breath, Generalized weakness Condition: Stable Prescriptions: No Action aspirin 81 mg tablet,delayed release (DR/EC) 162 mg PO QAM insulin aspart U-100 [Novolog FlexPen U-100 Insulin] 100 unit/mL (3 mL) insulin pen 5 unit SUBCUT TID Qty: 15 1RF meloxicam 15 mg tablet 15 mg PO DAILY Qty: 90 1RF gabapentin 300 mg capsule 300 mg PO BID Qty: 30 1RF benazepril 5 mg tablet 5 mg PO DAILY Qty: 90 1RF tramadol 50 mg tablet 50 mg PO TID PRN (Reason: take for moderate to severe pain PRN) Qty: 30 1RF hydroxyzine HCl 25 mg tablet 25 mg PO BID PRN (Reason: itching) Qty: 30 0RF albuterol sulfate 90 mcg/actuation HFA aerosol inhaler 2 puff inhalation Q6H PRN (Reason: shortness of breath or wheezing) Qty: 8.5 0RF atorvastatin 40 mg tablet 40 mg PO QAM Qty: 90 1RF hydrochlorothiazide 25 mg tablet 25 mg PO QAM Qty: 90 0RF Rx Instructions: TAKE 1 TABLET BY MOUTH IN THE MORNING venlafaxine 75 mg capsule,extended release 24hr 75 mg PO DAILY Qty: 90 0RF Rx Instructions: Take 1 capsule by mouth once daily in the morning glyburide 5 mg tablet 5 mg PO DAILY Qty: 30 1RF insulin glargine [Lantus Solostar U-100 Insulin] 100 unit/mL (3 mL) insulin pen 36 unit SUBCUT BID Qty: 3 0RF trazodone 50 mg tablet 50 mg PO DAILY Qty: 30 1RF Actemra ACTPen 162 mg/0.9 mL pen injector 162 mg SUBCUT Q14D Qty: 1.8 5RF biotin 10,000 mcg Capsule 10,000 mcg PO QAM omeprazole 40 mg capsule,delayed release(DR/EC) 40 mg PO DAILY Rx Instructions: take 1 capsule in AM 30 minutes before breakfast orally daily; Discharge Orders: Discharge ED (Routine); Ordered 11/30/24 Ordered By: Teodora Sanders Referrals: Aaron Covington MD [Primary Care Provider, [facility]] - 4-7 days Discharge Diet: Advance as tolerated Discharge Activity: Resume usual activity Patient Instructions: Weakness (ED), Shortness of Breath (ED) Print Language: Faroese Coding Level of Care Code ED Picking Machine Operator for Nikita Mixon
[2024-11-30] MEDS: ondansetron 2 mg/ML SDV 2 mL 4 MG IVP (20:09)
[2024-11-30 20:15] LABS: Alanine Aminotransferase 41 U/L (0-33); Albumin Level 4.1 g/dL (3.5-5.2); Alkaline Phosphatase 46 U/L (35-105); Anion Gap 10.5 (5-19); Aspartate Amino Transferase 45 U/L (0-32); Blood Urea Nitrogen 7 mg/dL (8-23); Calcium 9.1 mg/dL (8.5-10.5); Carbon Dioxide 30 mmol/L (22-29); Chloride 103 mmol/L (98-107); Creatinine Clr Calc Pharmacy 104.4489; Globulin 1.9 g/dL (1.3-4.6); Glucose 74 mg/dL (65-115); NT Pro B Type Natriuretic Pept 82 pg/mL (0-125); Osmolality Calculated 287 mOsm/kg (285-295); Potassium 3.5 mmol/L (3.5-5.1); Sodium 140 mmol/L (136-145); Total Protein 6.0 g/dL (6.6-8.7)
--- NOTE | 2024-11-30 20:17 | ECG_ITS ---
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 Measurements Intervals [place] Rate: 67 P: 43 WV: 178 QRS: -15 QRSD: 112 T: 45 QT: 413 QTc: 438 Interpretive Statements SINUS RHYTHM LOW QRS VOLTAGE IN PRECORDIAL LEADS [QRS DEFLECTION < 1.0 mV IN CHEST LEADS] POSSIBLE ANTERIOR MYOCARDIAL INFARCTION , OF INDETERMINATE AGE [30 ms Q WAVE IN V3/V4, OR R < 0.2 mV IN V4] Compared to ECG 07/09/2024 17:00:09 No significant change Electronically Signed On 12-02-2024 23:15:22 CDT by Oni Holt M.D. [email or web address]
[2024-11-30 20:30] VITALS: BP 128/73; PULSE 68; RESP 14; O2SAT 94
[2024-11-30 21:06] LABS: Lipase 28 U/L (13-60); Thyroid Stimulating Hormone 1.52 uIU/mL (0.27-4.20)
[2024-11-30 21:16] VITALS: BP 153/76; PULSE 61; RESP 15; O2SAT 95
--- NOTE | 2024-11-30 21:31 | CTR_ITS ---
PROCEDURE INFORMATION: Exam: CT Head Without Contrast Exam date and time: 11/30/2024 9:45 PM Age: 64 years old Clinical indication: Syncope and collapse; Additional info: Near syncope TECHNIQUE: Imaging protocol: Computed tomography of the head without contrast. 292 image(s) are submitted. Radiation optimization: All CT scans at this facility use at least one of these dose optimization techniques: automated exposure control; mA and/or kV adjustment per patient size (includes targeted exams where dose is matched to clinical indication); or iterative reconstruction. COMPARISON: MR head wo/w con [id number] 08/10/2024 2:46 PM RADIATION DOSE METRICS: Total DLP (mGy-cm): 1229.98 FINDINGS: Brain: Normal. No hemorrhage. Unremarkable white matter. No mass effect. Cerebral ventricles: No ventriculomegaly. Paranasal sinuses: Visualized sinuses are unremarkable. No fluid levels. Mastoid air cells: Visualized mastoid air cells are well aerated. Bones: Unremarkable. No acute fracture. Soft tissues: Unremarkable. CT/CT head wo con* [id number] IMPRESSION: No acute intracranial abnormality.
[2024-11-30 21:38] LABS: Respiratory Syncytial Virus Ce NEGATIVE (Negative); SARS-CoV-2 PCR NEGATIVE (Negative)
[2024-11-30 21:42] LABS: Troponin 5 2HR 10.52 ng/L (0-10)
[2024-11-30 21:44] LABS: Troponin 5 2HR Delta -0.48 ABS# (0-10)
[2024-11-30 21:55] LABS: Glucose Urine UA Negative (Normal); Nitrate Urine Negative (Negative); Specific Gravity, Urine 1.017 (1.005-1.030)
[2024-11-30 22:00] LABS: Add Urine Microscopic? YES
[2024-11-30 23:19] VITALS: BP 143/80; PULSE 73; RESP 17; O2SAT 95
== END 2024-11-30 23:20 | disposition home or self-care (01) ==
PROVIDERS: Emergency Medicine; Physician Assistant; Emergency Provider Emergency Medicine; PCP Family Medicine
DX: R06.02 Shortness of breath (principal); R53.1 Weakness; Z79.82 Long term (current) use of aspirin; Z79.4 Long term (current) use of insulin; Z11.52 Encounter for screening for COVID-19; Z87.891 Personal history of nicotine dependence; E11.9 Type 2 diabetes mellitus without complications; I25.10 Atherosclerotic heart disease of native coronary artery without angina pectoris; E78.5 Hyperlipidemia, unspecified; E11.40 Type 2 diabetes mellitus with diabetic neuropathy, unspecified; I10 Essential (primary) hypertension
CPT/HCPCS: 36415; 36416; 70450; 71045; 80053; 81001; 82962; 83605; 83690; 83880; 84443; 84484; 85025; 87040; 87637; 93005; 96374; 99285; J2405; J7030; J7799; J9999

== ENCOUNTER 2025-02-19 12:01 | Outpatient (CLI) | payer OTHER, SELFPAY ==
[2025-02-19 12:42] LABS: Hematocrit 39.4 % (36-47); Hemoglobin 13.60 g/dL (11.27-16.99); Mean Corpuscular HGB Conc 34.5 g/dL (30-55); Mean Corpuscular Hemoglobin 32.5 pg (27-33); Mean Corpuscular Volume 94.0 fl (85-98); Nucleated Red Blood Cells % 0 %; Platelet Count 183 10^3/cmm (157-399); Red Blood Count 4.19 10^6/uL (3.85-5.65); White Blood Count 3.73 10^3/uL (3.29-11.43)
[2025-02-19 13:03] LABS: Alanine Aminotransferase 31 U/L (0-33); Albumin Level 4.4 g/dL (3.5-5.2); Alkaline Phosphatase 64 U/L (35-105); Aspartate Amino Transferase 30 U/L (0-32); Globulin 2.0 g/dL (1.3-4.6); Total Protein 6.4 g/dL (6.6-8.7)
== END 2025-02-19 12:02 | disposition home or self-care (01) ==
LOC: LAB 12:02
PROVIDERS: PCP Family Medicine; Visit Provider Internal Medicine Rheumatology
DX: Z79.899 Other long term (current) drug therapy (principal)
CPT/HCPCS: 36415; 80076; 82565; 85025; 85651; 86140

== ENCOUNTER → 2025-03-02 12:11 | Outpatient (BNVA) | payer OTHER, SELFPAY | PROVIDERS: PCP Family Medicine; Visit Provider Family Medicine | DX: E11.9 Type 2 diabetes mellitus without complications (principal); Z79.4 Long term (current) use of insulin | CPT/HCPCS: 80048; 83036 ==

== ENCOUNTER 2025-03-24 08:48 | Outpatient (CLI) | payer OTHER, SELFPAY ==
--- NOTE | 2025-03-24 09:00 | CTR_ITS ---
PROCEDURE INFORMATION: Exam: CTA Chest With Contrast Exam date and time: 03/24/2025 9:16 AM Age: 64 years old Clinical indication: Condition or disease; Other: Giant cell arteritis; Additional info: M31.6 - other giant cell arteritis, checking for giant cell arteritis. TECHNIQUE: Imaging protocol: Computed tomographic angiography of the chest with contrast. Exam focused on the arteries. 3D rendering (Not supervised by radiologist): MIP and/or 3D reconstructed images were created by the technologist. Radiation optimization: All CT scans at this facility use at least one of these dose optimization techniques: automated exposure control; mA and/or kV adjustment per patient size (includes targeted exams where dose is matched to clinical indication); or iterative reconstruction. Contrast material: OMNI 350; Contrast volume: 100 ml; Contrast route: INTRAVENOUS (IV); COMPARISON: CR XR chest 1V portable [id number] 11/30/2024 7:24 PM RADIATION DOSE METRICS: Total DLP (mGy-cm): 638.87 FINDINGS: Pulmonary arteries: No pulmonary emboli. Aorta: Nonaneurysmal ascending thoracic aorta with systemic aortic plaque and coronary artery calcification. No definite wall thickening, narrowing, or stricturing to suggest large vessel vasculitis. Proximal great vessels are patent. No evidence of aortic dissection, intramural hematoma, or penetrating atherosclerotic ulcer. Lungs: Unremarkable. No consolidation. No masses. Pleural spaces: Unremarkable. No pneumothorax. No pleural effusion. Heart: Unremarkable. No cardiomegaly. No pericardial effusion. Lymph nodes: Unremarkable. No enlarged lymph nodes. 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 No acute fracture. Soft tissues: Unremarkable. Cholelithiasis. Left renal calculus CT/CT angio chest [id number] IMPRESSION: No definite CTA evidence of vasculitis. If concern persists, consider MRA. No pulmonary embolus.
[2025-03-24] MEDS: iohexol 350 mg/mL 500 mL Btl (per mL) IV (09:21)
== END 2025-03-24 08:49 | disposition home or self-care (01) ==
LOC: RAD 08:50
PROVIDERS: PCP Family Medicine; Visit Provider Internal Medicine Rheumatology
DX: M31.6 Other giant cell arteritis (principal); Z79.899 Other long term (current) drug therapy; I70.0 Atherosclerosis of aorta; I25.10 Atherosclerotic heart disease of native coronary artery without angina pectoris
CPT/HCPCS: 71275; 85651; 86140